=== PATIENT | female | born 1980 | race American Indian/Alaskan Native ===

== ENCOUNTER 2016-11-04 15:00 | Emergency (ER) | payer MEDICAID ==
--- NOTE | 2016-11-04 15:14 | EDM.PDOC ---
ED HPI GENERAL MEDICAL PROBLEM - General Chief Complaint: Abdominal Pain Stated Complaint: STOMACH CRAMPS / [id number] Time Seen by Provider: 11/04/16 15:14 Source of Information: Reports: Patient History Limitations: Reports: No Limitations - History of Present Illness Onset: Other (heavy vaginal bleeding for 6 days. Using 4 pads a day. Has oxycodone at home for chronic pain, not helping with assoc pelvic pain. Has light and then heavy periods alternatingly. Menses in September very light. Not on any control. 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 pt reports 11 years ago D&C for heavy bleeding? Reports h/o abnormal pap (when?) states "did not follow up"? Other Musculoskeletal History: fx of right hand about 14 yrs ago - Past Surgical History GI Surgical History: Reports: Hernia Repair/Other Social & Family History - Tobacco Use Smoking Status *Q: Current Some Day Smoker Years of Tobacco use: 10 Packs/Tins Daily: 1 Used Tobacco, but Quit: No Month Tobacco Last Used: 08/24 Second Hand Smoke Exposure: No - Caffeine Use Caffeine Use: Reports: Coffee, Soda, Tea - Alcohol Use Days Per Week of Alcohol Use: 0 - Recreational Drug Use Recreational Drug Use: No Drug Use in Last 12 Months: No ED ROS GENERAL - Review of Systems Review Of Systems: See Below Constitutional: Reports: No Symptoms HEENT: Reports: No Symptoms Respiratory: Reports: No Symptoms Cardiovascular: Reports: No Symptoms Endocrine: Reports: No Symptoms GI/Abdominal: Reports: No Symptoms : Reports: Other (heavy vaginal bleeding for 6 days with crampy pelvic pain not relieved with home oxycodone) Musculoskeletal: Reports: Other (h/o chronic bilat foot pain due to "arthritis" , right worse than left) Skin: Reports: No Symptoms Neurological: Reports: No Symptoms Psychiatric: Reports: No Symptoms Hematologic/Lymphatic: Reports: No Symptoms Immunologic: Reports: No Symptoms ED EXAM, DIZZINESS - Physical Exam Exam: See Below Exam Limited By: No Limitations General Appearance: Other (Pt alternates between talking calming and answering questions to moaning loudly and thrashing on the bed.) Ears: Normal External Exam, Normal Canal, Hearing Grossly Normal, Normal TMs Nose: Normal Inspection, Normal Mucosa Throat/Mouth: Normal Inspection, Normal Lips, Normal Teeth, Normal Gums, Normal Oropharynx, Normal Voice, No Airway Compromise Head Exam: Atraumatic, Normocephalic Respiratory/Chest: No Respiratory Distress, Lungs Clear, Normal Breath Sounds Cardiovascular: Normal Peripheral Pulses, Regular Rate, Rhythm GI/Abdominal: Normal Bowel Sounds, Soft, Non-Tender, No Organomegaly, No Distention (Female) Exam: Other (mod bright red blood from cervix, no CMT, cervix thick approx one fingertip open) Neurological: Alert Back Exam: Normal Inspection Extremities: Normal Inspection Psychiatric: Anxious Skin Exam: Warm, Dry, Intact, Normal Color, No Rash Course - Vital Signs Text/Narrative:: Pt moaning loudly she needed something strong for pain. Has oxycodone at home taking for pain, not helping. 6 day report heavy vag bleeding with crampy pelvic pain. Initial BP 141/68, HR 73, RR 24, O2 Sat 100%. Qual hcg positive and awaiting qual. U/S highly suggestive of demise at approx. 15 weeks. No cardiac activity, no uterine blood flow to support viable . Dr. Barrett exceptional needs teacher for OB and call has been placed. 16:[address] Barrett has seen and evaluated the pt. She has discussed with OB/Gyne in [facility]. Pt to be transferred to [facility] for ongoing care and evaluation. Last Recorded V/S: Last Vital Signs Temp 36.0 C 11/04/16 15:00 Pulse 90 11/04/16 17:18 Resp 24 H 11/04/16 15:00 BP 127/75 11/04/16 17:18 Pulse Ox 98 11/04/16 17:18 - Orders/Labs/Meds Orders: Active Orders 24 hr Category Date Time Status URINALYSIS W/MICROSCOPIC [UA W/MICROSCOPIC] [URIN] Stat Lab 11/04/16 15:55 Uncollected Sodium Chloride 0.9% [Normal Saline] 1,000 ml Med 11/04/16 15:15 Active IV ASDIRECTED Medication Orders Sodium Chloride (Normal Saline) 1,000 mls @ 999 mls/hr IV ASDIRECTED SAMMI Last Admin: 11/04/16 15:30 Dose: 999 mls/hr Labs: Laboratory Tests 11/04/16 11/04/16 11/04/16 Range/Units 15:20 15:20 15:20 WBC 13.4 H (5.0-10.0) 10^3/uL RBC 4.65 (4.2-5.4) 10^6/uL Hgb 13.6 (12.0-16.0) g/dL Hct 40.5 (37.0-47.0) % MCV 87.1 (80-100) fL MCH 29.2 (27.0-34.0) pg MCHC 33.6 (33.0-35.0) g/dL Plt Count 267 (150-450) 10^3/uL Neut % (Auto) 71.9 (42.2-75.2) % Lymph % (Auto) 20.2 L (20.5-50.1) % [place] % (Auto) 6.0 (2-8) % Eos % (Auto) 1.8 (1.0-3.0) % Baso % (Auto) 0.1 (0.0-1.0) % Sodium 137 (135-145) mmol/L Potassium 3.1 L (3.6-5.0) mmol/L Chloride 107 (101-111) mmol/L Carbon Dioxide 22.0 (21.0-31.0) mmol/L Anion Gap 11.1 BUN 4 L (7-18) mg/dL Creatinine 0.5 L (0.6-1.3) mg/dL Est Cr Clr Drug Dosing 147.21 mL/min Estimated GFR (MDRD) > 60 BUN/Creatinine Ratio 8.00 Glucose 102 (74-105) mg/dL Calcium 8.4 (8.4-10.2) mg/dl Total Bilirubin 0.7 (0.2-1.0) mg/dL AST 85 H (10-42) IU/L ALT 116 H (10-60) IU/L Alkaline Phosphatase 97 (42-121) IU/L Total Protein 7.0 (6.7-8.2) g/dl Albumin 3.5 (3.2-5.5) g/dl Globulin 3.5 Albumin/Globulin Ratio 1.00 HCG, Qual Positive HCG, Quant 270 H (0-25) mIU/ml Beta HCG, Quant TNP Meds: Medications Generic Name Dose Route Start Last Admin Trade Name Freq PRN Reason Stop Dose Admin Sodium Chloride 1,000 mls @ 999 mls/hr 11/04/16 15:15 11/04/16 15:30 Normal Saline IV 999 mls/hr ASDIRECTED SAMMI Administration Discontinued Medications Generic Name Dose Route Start Last Admin Trade Name Freq PRN Reason Stop Dose Admin Hydromorphone HCl 1 mg 11/04/16 15:23 11/04/16 15:30 Dilaudid IVPUSH 11/04/16 15:24 1 mg ONETIME ONE Administration Hydromorphone HCl 1 mg 11/04/16 15:52 11/04/16 15:59 Dilaudid IVPUSH 11/04/16 15:53 1 mg ONETIME ONE Administration Hydromorphone HCl 1 mg 11/04/16 17:56 11/04/16 18:00 Dilaudid IVPUSH 11/04/16 17:57 1 mg ONETIME ONE Administration Ondansetron HCl 4 mg 11/04/16 15:52 11/04/16 15:59 Zofran IV 11/04/16 15:53 4 mg ONETIME ONE Administration Departure - Departure Time of Disposition: 18:15 Disposition: DC/Tfer to Acute Hospital 02 Condition: good Clinical Impression: Inevitable - Discharge Information - My Orders Last 24 Hours: My Active Orders 11/04/16 15:15 Sodium Chloride 0.9% [Normal Saline] 1,000 ml IV ASDIRECTED 11/04/16 15:55 URINALYSIS W/MICROSCOPIC [UA W/MICROSCOPIC] [URIN] Stat - Assessment/Plan Last 24 Hours: My Active Orders 11/04/16 15:15 Sodium Chloride 0.9% [Normal Saline] 1,000 ml IV ASDIRECTED 11/04/16 15:55 URINALYSIS W/MICROSCOPIC [UA W/MICROSCOPIC] [URIN] Stat
[2016-11-04] MEDS ORDERED: Sodium Chloride 0.9% 1,000 ML IV SCH (15:15)
[2016-11-04] MEDS ORDERED: HYDROmorphone 1 MG/ML Syringe IVPUSH ONE ×3 (15:23→17:56)
[2016-11-04 15:48] LABS: CHLORIDE,CL 107 mmol/L (101-111); SODIUM,NA 137 mmol/L (135-145)
[2016-11-04] MEDS ORDERED: Ondansetron 4 MG/2 ML SDV IV ONE (15:52)
--- NOTE | 2016-11-04 16:40 | US ---
Clinical history: 36-year-old gravid" (positive test) female who "didn't know she was preg nant" but now experiencing lower abdominal labor like pains and vaginal bleeding. Interpretation: Enlarged uterus with a central gestational sac that has a uniformly thick "rind" and intraluminal fetus (biparietal diameter approximately 15 weeks). No motion or heart beat appreciated i.e. demise. Large amount of vascularity around the gestational sac consistent with probable threatening AB. CONCLUSION: demise/threatening AB. Critical exam: Primary care provider (Dr. Marmolejo) emergency department notified at 1630 hours.
[2016-11-04 18:17] VITALS: BP 128/78
--- NOTE | 2016-11-08 07:20 | CONS ---
SERVICE DATE: 11/04/2016 REASON FOR CONSULTATION: Miscarriage at 15 weeks gestation with heavy bleeding. HISTORY OF PRESENT ILLNESS: A 36-year-old, 7, para 5-0-1-5 currently at 15 weeks gestation based on ultrasound performed today with a crown-rump length of 8.68 cm, biparietal diameter of 2.75 cm presents to the Emergency Department complaining of vaginal bleeding that started Monday (5 days ago). Also reports that she did not know she was and initially thought this was just like a regular period which for her has been irregular ever since menarche at age 11 with clots. Reports today she got up and went to work and noticed some dull cramping type of pain around 8 a.m. and the pain continued throughout the day and [facility], but they informed her there were no openings and she proceeded to the Emergency Department. Upon arrival in the ER, she was reporting significant pain requiring Dilaudid for pain management, had a fairly heavy vaginal bleeding noted. On examination, ER provider reports that the vaginal vault had blood and clots present and the cervix was about 1 cm dilated, and posterior. She did not see any parts or products of conception inside the os. Laboratory show white blood cell count of 13.4, hemoglobin of 13.6, hematocrit 40.5, and platelets of 267. Chemistry remarkable for potassium of 3.1, AST of 85, and ALT of 116. Beta HCG is 270. I was called over to assess for consideration of D and C for delivery. PAST MEDICAL HISTORY: Chronic low back pain, chronic narcotic use because of her dental and low back pain, insomnia, obesity, history of urosepsis in in 2010, also ventral hernia, and former smoker. PAST SURGICAL HISTORY: section x5, the first one in 2001 and last one in 2013. She has had a left foot surgery and a ventral hernia repair with mesh. Also, reports dilatation and curettage for prior SAB. FAMILY HISTORY: Significant for her father having had a heart attack. Otherwise, noncontributory at this time. No anesthesia complications. No bleeding or clotting disorders. No history of recurrent miscarriage. SOCIAL HISTORY: The patient is a former smoker. Denies any significant use of alcohol. She is unmarried and mother of 5 children. Those children tonight will be taken care of by the grandparents and one of the children is with his biological father. 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 She had asked that we contact her sister, Jenn Gilliam who I was unable to reach by phone but her #[phone]. REVIEW OF SYSTEMS: She denies any headaches or blurry vision. No chest pain or shortness of breath. Denies any dysuria or constipation. No recent fever or chills. Last oral intake was about 1 p.m., she had a can of Mountain Dew and some chips. Her last regular meal was last night. She will be kept n.p.o. at this time. Reports that this pain is very similar to the pain she had with her prior hernia, but since has evolved into more labor like pains. MEDICATIONS: 1. Oxycodone 10/325 as needed for pain. 2. Celebrex 100 mg daily. 3. Neurontin 300 mg 4 times daily. 4. Voltaren gel as needed. 5. Ibuprofen 800 mg every 8 hours as needed. 6. Tylenol 650 mg every 6 hours as needed. ALLERGIES: No known drug allergies. PHYSICAL EXAMINATION: General: Overall, patient is alert and aware of the situation. She does have reports of moderate pain with contractions. Vital Signs: Temperature is 96.9, pulse of 56, blood pressure 128/78, respiratory rate of 18, and O2 saturations 98% on room air. HEENT: Grossly unremarkable. Heart: Regular without obvious murmur. Lungs: Clear bilaterally. Abdomen: Soft and nontender. There is a bulging in the midline consistent with her ventral hernia history. She also has a well-healed section scar. Lower Extremities: No edema, erythema, or tenderness noted. Genitourinary: Exam was not repeated. ER provider had previously performed and noted the cervix to only be 1 cm open and blood and clots present, but no parts or products of conception could be seen. LABORATORY DATA: As listed above. Per chart review, blood type is B positive. ASSESSMENT: 1. Spontaneous at 15 weeks gestation, undelivered. 2. History of section x5. PLAN: I spoke briefly with Dr. Farncis who has accepted this patient in transfer. I visited with the patient about recommendations for a vaginal delivery of this demise as compared to dilatation and evacuation. The patient will think about preferred route of delivery while en route to [place]. I have spoken with her about the potential risk for bleeding complications if I were to proceed with attempted delivery here and potential for decompensation of her condition requiring transfer to [place] if she were to have problems or were to become unstable and transfer while she is in good condition is preferred. The patient verbalizes an understanding of this and appreciates the fact that if there are complications being in [place] with specialty care and specialty equipment would be more appropriate. Of note is also the [facility] policy is that VBACs are only to be performed in the emergency situations without alternative route of delivery and do require the surgical crew and 2 physicians be in-house the entire time the patient is in labor and therefore since this would be considered a non-urgent or non-imminent delivery, it is also outside the realm of my hospital policy to proceed with a vaginal delivery here. Patient will be kept n.p.o. and transferred via ambulance as soon as they are here to pick her up. [facility] /[id number]
== END 2016-11-04 19:10 ==
LOC: DL.ED 15:00
DX: O03.9 Complete or unspecified spontaneous abortion without complication (principal); O99.332 Smoking (tobacco) complicating pregnancy, second trimester; F17.210 Nicotine dependence, cigarettes, uncomplicated; Z79.899 Other long term (current) drug therapy; Z98.890 Other specified postprocedural states
CPT/HCPCS: 36415; 76815; 80053; 84702; 84703; 85025; 96361; 96374; 96375; 96376; 99285; J1170; J2405; J7030

== ENCOUNTER 2017-02-21 19:04 | Emergency (ER) | payer MEDICAID ==
[2017-02-21 19:35] VITALS: BP 98/81
[2017-02-21 19:55] LABS: CHLORIDE,CL 99 mmol/L (101-111); SODIUM,NA 137 mmol/L (135-145)
[2017-02-21] MEDS ORDERED: Iopamidol 612 MG/ML 100 ML Bottle IVPUSH ONE (20:13)
[2017-02-21] MEDS ORDERED: Sodium Chloride 0.9% 1,000 ML IV ONE (20:13)
[2017-02-21] MEDS ORDERED: Famotidine 20 MG/2 ML SDV IVPUSH ONE (20:54)
[2017-02-21] MEDS ORDERED: Ondansetron 4 MG/2 ML SDV IV ONE (20:54)
[2017-02-21] MEDS ORDERED: HYDROmorphone 1 MG/ML Syringe IVPUSH ONE (20:55)
[2017-02-21] MEDS ORDERED: cefTRIAXone 1 GM in Sodium Chloride 0.9% 50 ML IV ONE (21:19)
--- NOTE | 2017-02-21 21:29 | EDM.PDOC ---
ED HPI GENERAL MEDICAL PROBLEM - General Chief Complaint: Chest Pain Stated Complaint: COMING BY AMBUL, CHEST PAINS Time Seen by Provider: 02/21/17 19:30 Source of Information: Reports: Patient History Limitations: Reports: No Limitations - History of Present Illness INITIAL COMMENTS - FREE TEXT/NARRATIVE: ED via [facility] with c/o lower abdominal pain, epigastric pain, vomiting . Patient describes gradual onset of pain worsening that is similar to painshe associates with remote incisional hernia. States she thinks her "mesh broke". Feels increased pain throbbing to lower abdomen when lying on left side. Occasional problems with constipation, none recent. Ate cheeseburger and fries prior to vomiting today. Has not taken anything for discomfort. no follow up done with initial surgeon. Epigastric Pain Score (Numeric/FACES): 7 - Related Data Allergies Allergy/AdvReac Type Severity Reaction Status Date / Time No Known Allergies Allergy Verified 02/21/17 19:05 Home Meds: Home Meds Ibuprofen 800 mg PO Q6HR PRN 01/04/14 [History] Acetaminophen [Tylenol] 2 tab PO Q6H 04/08/15 [History] Gabapentin [Neurontin] 1 tab PO BEDTIME 04/08/15 [History] Past Medical History - Past Health History Medical/Surgical History: Denies Medical/Surgical History HEENT History: Reports: Impaired Vision Cardiovascular History: Reports: None Respiratory History: Reports: None Gastrointestinal History: Reports: None 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 pt reports 11 years ago D&C for heavy bleeding? Reports h/o abnormal pap (when?) states "did not follow up"? Other Musculoskeletal History: fx of right hand about 14 yrs ago Neurological History: Reports: None Psychiatric History: Reports: None Endocrine/Metabolic History: Reports: None Hematologic History: Reports: None Immunologic History: Reports: None Oncologic (Cancer) History: Reports: None Dermatologic History: Reports: None - Past Surgical History GI Surgical History: Reports: Hernia Repair/Other Female Surgical History: Reports: Section Social & Family History - Tobacco Use Smoking Status *Q: Never Smoker Years of Tobacco use: 10 Packs/Tins Daily: 1 Used Tobacco, but Quit: No Month Tobacco Last Used: 08/24 Second Hand Smoke Exposure: No - Caffeine Use Caffeine Use: Reports: Coffee, Soda, Tea - Alcohol Use Days Per Week of Alcohol Use: 0 - Recreational Drug Use Recreational Drug Use: No Drug Use in Last 12 Months: No ED ROS GENERAL - Review of Systems Review Of Systems: See Below Constitutional: Denies: Fever, Chills, Decreased Appetite HEENT: Reports: Throat Pain Respiratory: Reports: No Symptoms Cardiovascular: Reports: No Symptoms Endocrine: Reports: No Symptoms GI/Abdominal: Reports: Abdominal Pain, Vomiting. Denies: Diarrhea, Distension, Hematemesis, Nausea Musculoskeletal: Reports: No Symptoms Skin: Reports: No Symptoms Neurological: Reports: No Symptoms Psychiatric: Reports: No Symptoms Hematologic/Lymphatic: Reports: No Symptoms ED EXAM, GENERAL - Physical Exam Exam: See Below Exam Limited By: No Limitations General Appearance: Alert, Mild Distress Eye Exam: Bilateral Eye: EOMI Ears: Normal External Exam Ear Exam: Bilateral Ear: Auricle Normal, Canal Normal, TM normal Nose: Normal Inspection Throat/Mouth: Normal Inspection Head: Atraumatic, Normocephalic Neck: Normal Inspection, Supple, Non-Tender Respiratory/Chest: No Respiratory Distress, Lungs Clear, Normal Breath Sounds Cardiovascular: Normal Peripheral Pulses, Regular Rate, Rhythm GI/Abdominal: Soft, Tender (mild lower with deep palpation no masses palpable. ), Abnormal Bowel Sounds (hypoactive). No: No Distention, Distended, Guarding, Rebound, Hepatomegaly, Splenomegaly Back Exam: Full Range of Motion. No: CVA Tenderness (L), CVA Tenderness (R) Extremities: Normal Inspection Neurological: Alert, Oriented, Normal Cognition Psychiatric: Normal Affect Skin Exam: Warm, Dry, Intact, Normal Color Course - Vital Signs Last Recorded V/S: Last Vital Signs Temp 97.6 F 02/21/17 19:26 Pulse 65 02/21/17 19:26 Resp 18 02/21/17 19:26 BP 98/81 02/21/17 19:26 Pulse Ox 96 02/21/17 19:26 - Orders/Labs/Meds Orders: Active Orders 24 hr Category Date Time Status EKG Documentation Completion [RC] STAT Care 02/21/17 19:21 Active Labs: Laboratory Tests 02/21/17 02/21/17 02/21/17 Range/Units 19:24 19:24 19:29 WBC 9.6 (5.0-10.0) 10^3/uL RBC 4.88 (4.2-5.4) 10^6/uL Hgb 12.1 (12.0-16.0) g/dL Hct 38.4 (37.0-47.0) % MCV 78.7 L (80-100) fL MCH 24.8 L (27.0-34.0) pg MCHC 31.5 L (33.0-35.0) g/dL Plt Count 279 (150-450) 10^3/uL Neut % (Auto) 62.2 (42.2-75.2) % Lymph % (Auto) 27.0 (20.5-50.1) % [place] % (Auto) 7.4 (2-8) % Eos % (Auto) 3.2 H (1.0-3.0) % Baso % (Auto) 0.2 (0.0-1.0) % Sodium (135-145) mmol/L Potassium (3.6-5.0) mmol/L Chloride (101-111) mmol/L Carbon Dioxide (21.0-31.0) mmol/L Anion Gap BUN (7-18) mg/dL Creatinine (0.6-1.3) mg/dL Est Cr Clr Drug Dosing mL/min Estimated GFR (MDRD) BUN/Creatinine Ratio Glucose (74-105) mg/dL Calcium (8.4-10.2) mg/dl Total Bilirubin (0.2-1.0) mg/dL AST (10-42) IU/L ALT (10-60) IU/L Alkaline Phosphatase (42-121) IU/L Troponin I (0.00-0.02) ng/ml Total Protein (6.7-8.2) g/dl Albumin (3.2-5.5) g/dl Globulin Albumin/Globulin Ratio Amylase (28-100) U/L Lipase (22-51) U/L HCG, Qual Urine Color Dark yellow (YELLOW) Urine Appearance Cloudy (CLEAR) Urine pH 5.5 (5.0-9.0) Ur Specific Schuyler >= 1.030 (1.005-1.030) Urine Protein Trace H (NEGATIVE) Urine Glucose (UA) Negative (NEGATIVE) Urine Ketones Negative (NEGATIVE) Urine Occult Blood Negative (NEGATIVE) Urine Nitrite Negative (NEGATIVE) Urine Bilirubin Small H (NEGATIVE) Urine Urobilinogen 1.0 (0.2-1.0) mg/dL Ur Leukocyte Esterase Negative (NEGATIVE) Urine RBC 0-5 /HPF Urine WBC 0-5 (0-5/HPF) /HPF Ur Epithelial Cells Many H /HPF Urine Bacteria Moderate H (0-FEW/HPF) /HPF Urine Mucus Moderate H /LPF Urine Opiates Screen Positive H (NEGATIVE) Ur Oxycodone Screen Positive H (NEGATIVE) Urine Methadone Screen Negative (NEGATIVE) Ur Barbiturates Screen Negative (NEGATIVE) U Tricyclic Antidepress Negative (NEGATIVE) Ur Phencyclidine Scrn Negative (NEGATIVE) Ur Amphetamine Screen Negative (NEGATIVE) U Methamphetamines Scrn Negative (NEGATIVE) Urine MDMA Screen Negative (NEGATIVE) U Benzodiazepines Scrn Negative (NEGATIVE) Urine Cocaine Screen Negative (NEGATIVE) U Marijuana (THC) Screen Positive H (NEGATIVE) 02/21/17 Range/Units 19:29 WBC (5.0-10.0) 10^3/uL RBC (4.2-5.4) 10^6/uL Hgb (12.0-16.0) g/dL Hct (37.0-47.0) % MCV (80-100) fL MCH (27.0-34.0) pg MCHC (33.0-35.0) g/dL Plt Count (150-450) 10^3/uL Neut % (Auto) (42.2-75.2) % Lymph % (Auto) (20.5-50.1) % [place] % (Auto) (2-8) % Eos % (Auto) (1.0-3.0) % Baso % (Auto) (0.0-1.0) % Sodium 137 (135-145) mmol/L Potassium 4.3 (3.6-5.0) mmol/L Chloride 99 L (101-111) mmol/L Carbon Dioxide 29.0 (21.0-31.0) mmol/L Anion Gap 13.3 BUN 9 (7-18) mg/dL Creatinine 0.7 (0.6-1.3) mg/dL Est Cr Clr Drug Dosing 103.99 mL/min Estimated GFR (MDRD) > 60 BUN/Creatinine Ratio 12.85 Glucose 105 (74-105) mg/dL Calcium 8.8 (8.4-10.2) mg/dl Total Bilirubin 1.1 H (0.2-1.0) mg/dL AST 66 H (10-42) IU/L ALT 122 H (10-60) IU/L Alkaline Phosphatase 98 (42-121) IU/L Troponin I < 0.02 (0.00-0.02) ng/ml Total Protein 7.3 (6.7-8.2) g/dl Albumin 3.7 (3.2-5.5) g/dl Globulin 3.6 Albumin/Globulin Ratio 1.03 Amylase 51 (28-100) U/L Lipase 19 L (22-51) U/L HCG, Qual Negative Urine Color (YELLOW) Urine Appearance (CLEAR) Urine pH (5.0-9.0) Ur Specific Schuyler (1.005-1.030) Urine Protein (NEGATIVE) Urine Glucose (UA) (NEGATIVE) Urine Ketones (NEGATIVE) Urine Occult Blood (NEGATIVE) Urine Nitrite (NEGATIVE) Urine Bilirubin (NEGATIVE) Urine Urobilinogen (0.2-1.0) mg/dL Ur Leukocyte Esterase (NEGATIVE) Urine RBC /HPF Urine WBC (0-5/HPF) /HPF Ur Epithelial Cells /HPF Urine Bacteria (0-FEW/HPF) /HPF Urine Mucus /LPF Urine Opiates Screen (NEGATIVE) Ur Oxycodone Screen (NEGATIVE) Urine Methadone Screen (NEGATIVE) Ur Barbiturates Screen (NEGATIVE) U Tricyclic Antidepress (NEGATIVE) Ur Phencyclidine Scrn (NEGATIVE) Ur Amphetamine Screen (NEGATIVE) U Methamphetamines Scrn (NEGATIVE) Urine MDMA Screen (NEGATIVE) U Benzodiazepines Scrn (NEGATIVE) Urine Cocaine Screen (NEGATIVE) U Marijuana (THC) Screen (NEGATIVE) Meds: Medications Discontinued Medications Generic Name Dose Route Start Last Admin Trade Name Freq PRN Reason Stop Dose Admin Famotidine 20 mg 02/21/17 20:54 02/21/17 21:23 Pepcid IVPUSH 02/21/17 20:55 20 mg ONETIME ONE Administration Hydromorphone HCl 1 mg 02/21/17 20:55 02/21/17 21:25 Dilaudid IVPUSH 02/21/17 20:56 1 mg ONETIME ONE Administration Sodium Chloride 1,000 mls @ 999 mls/hr 02/21/17 20:13 02/21/17 20:25 Normal Saline IV 02/21/17 21:13 999 mls/hr .BOLUS ONE Administration Ceftriaxone Sodium 1 gm/ 50 mls @ 100 mls/hr 02/21/17 21:19 02/21/17 21:33 Sodium Chloride IV 02/21/17 21:48 100 mls/hr ONETIME ONE Administration Iopamidol 100 ml 02/21/17 20:13 02/21/17 20:38 Isovue-300 (61%) IVPUSH 02/21/17 20:14 100 ml ONETIME ONE Administration Ondansetron HCl 4 mg 02/21/17 20:54 02/21/17 21:21 Zofran IV 02/21/17 20:55 4 mg ONETIME ONE Administration Departure - Departure Time of Disposition: 22:15 Disposition: Home, Self-Care 01 Condition: Fair Clinical Impression: Acute streptococcal pharyngitis Vomiting Qualifiers: Vomiting type: unspecified Vomiting Intractability: non-intractable Nausea presence: with nausea Qualified Code(s): R11.2 - Nausea with vomiting, unspecified Abdominal pain Qualifiers: Abdominal location: lower abdomen, unspecified Qualified Code(s): R10.30 - Lower abdominal pain, unspecified - Discharge Information Instructions: Strep Throat, [id number] Referrals: Marlen Mcduffie MD [Primary Care Provider] - Forms: ED Department Discharge Additional Instructions: amoxicillin 500mg one three times daily for one week increase fluid intake bland diet follow up with surgeon if continued abdominal pain - My Orders Last 24 Hours: My Active Orders 02/21/17 19:21 EKG Documentation Completion [RC] STAT - Assessment/Plan Last 24 Hours: My Active Orders 02/21/17 19:21 EKG Documentation Completion [RC] STAT
--- NOTE | 2017-03-18 11:46 | EKG ---
02/21/2017 - NATHEN GREWAL - This 12-lead EKG shows normal sinus rhythm with sinus bradycardia. Heart rate of 56, NM interval of 132. No significant ST elevation or ST depression noted on this 12-lead EKG. [facility] /[id number]
== END 2017-02-21 22:18 | disposition home or self-care (01) ==
LOC: DL.ED 19:04
DX: J02.0 Streptococcal pharyngitis (principal); R10.30 Lower abdominal pain, unspecified; R11.2 Nausea with vomiting, unspecified; Z98.890 Other specified postprocedural states
CPT/HCPCS: 36415; 74177; 80053; 80305; 81001; 82150; 83690; 84484; 84703; 85025; 87430; 93005; 96361; 96365; 96375; 99285; J0696; J1170; J2405; J7030; J7050; Q9967; S0028

== ENCOUNTER 2018-07-26 23:20 | Emergency (ER) | payer BC, MEDICAID ==
[2018-07-26] MEDS ORDERED: LORazepam 0.5 MG Tab PO ONE (23:21)
[2018-07-26 23:31] VITALS: BP 141/74
[2018-07-26] MEDS ORDERED: Sodium Chloride 0.9% 10 ML Syringe FLUSH PRN (23:38)
[2018-07-27 00:18] LABS: ANION GAP 13.4; CHLORIDE,CL 101 mmol/L (101-111); SODIUM,NA 137 mmol/L (135-145)
[2018-07-27] MEDS ORDERED: GI Cocktail Oral Solution 30 ML PO ONE (00:55)
--- NOTE | 2018-07-27 01:10 | EDM.PDOC ---
ED HPI GENERAL MEDICAL PROBLEM - General Chief Complaint: Chest Pain Stated Complaint: CHEST FEELS HEAVY [id number] Time Seen by Provider: 07/27/18 00:00 Source of Information: Reports: Patient, RN, RN Notes Reviewed History Limitations: Reports: No Limitations - History of Present Illness INITIAL COMMENTS - FREE TEXT/NARRATIVE: Pt to ER with c/o sudden onset crushing chest pain, SOB. She states it went away , then came back. She states she was unsure if it was anxiety, indigestion, or her heart. She states she has a strong family history of cardiac problems. She states the midsternal discomfort is 6/10. She last ate grilled ham and cheese, banana, Naked juice, coffee at 1900. She states there is no radiation of the pain. She states she felt sick a few weeks ago. Recently has had body aches, tired. Denies fever, chills, diarrhea, N/V. Patient also states she may have some anxiety. Onset: Today, Sudden Duration: Intermittent Location: Reports: Chest Quality: Reports: Pressure Severity: Moderate Improves with: Reports: None Worsens with: Reports: None Associated Symptoms: Reports: Chest Pain, Shortness of Breath Mid-Sternal Chest Pain Score (Numeric/FACES): 8 - Related Data Allergies Allergy/AdvReac Type Severity Reaction Status Date / Time No Known Allergies Allergy Verified 07/26/18 23:31 Home Meds: Home Meds Ibuprofen 800 mg PO Q6HR PRN 01/04/14 [History] Acetaminophen [Tylenol] 2 tab PO Q6H 04/08/15 [History] Gabapentin [Neurontin] 800 mg PO TID 07/26/18 [History] Past Medical History - Past Health History Medical/Surgical History: Denies Medical/Surgical History HEENT History: Reports: Impaired Vision Cardiovascular History: Reports: None Respiratory History: Reports: None Gastrointestinal History: Reports: Other (See Below) Other Gastrointestinal History: abdominal hernia 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 pt reports 11 years ago D&C for heavy bleeding? Reports h/o abnormal pap (when?) states "did not follow up"? Other Musculoskeletal History: fx of right hand about 14 yrs ago Neurological History: Reports: None Psychiatric History: Reports: Anxiety Endocrine/Metabolic History: Reports: None Hematologic History: Reports: None Immunologic History: Reports: None Oncologic (Cancer) History: Reports: None Dermatologic History: Reports: None - Past Surgical History Female Surgical History: Reports: Section Social & Family History - Family History Family Medical History: Noncontributory - Tobacco Use Smoking Status *Q: Unknown Ever Smoked - Caffeine Use Caffeine Use: Reports: Coffee, Energy Drinks, Soda - Recreational Drug Use Recreational Drug Use: No ED ROS GENERAL - Review of Systems Review Of Systems: ROS reveals no pertinent complaints other than HPI. ED EXAM, GENERAL - Physical Exam Exam: See Below Exam Limited By: No Limitations General Appearance: Alert, WD/WN, Mild Distress Eye Exam: Bilateral Eye: EOMI, Normal Inspection Ears: Normal External Exam, Hearing Grossly Normal Nose: Normal Inspection Throat/Mouth: Normal Inspection, Normal Voice, No Airway Compromise Head: Atraumatic, Normocephalic Neck: Normal Inspection, Supple, Non-Tender, Full Range of Motion Respiratory/Chest: No Respiratory Distress, Lungs Clear, Normal Breath Sounds, No Accessory Muscle Use, Chest Non-Tender Cardiovascular: Normal Peripheral Pulses, Regular Rate, Rhythm, No Edema, No Gallop, No JVD, No Rub, Systolic Murmur Peripheral Pulses: 2+: Radial (L), Radial (R) GI/Abdominal: Normal Bowel Sounds, Soft, Non-Tender, Hernia (umbilical) (Female) Exam: Deferred Rectal (Female) Exam: Deferred Back Exam: Normal Inspection, Full Range of Motion Extremities: Normal Inspection, Normal Range of Motion, Non-Tender, Normal Capillary Refill, No Pedal Edema Neurological: Alert, Oriented, CN II-XII Intact, Normal Cognition, Normal Gait, Normal Reflexes, No Motor/Sensory Deficits Psychiatric: Anxious Skin Exam: Warm, Dry, Intact, Normal Color, No Rash Lymphatic: No Adenopathy EKG INTERPRETATION EKG Date: 07/26/18 Time: 23:40 Rhythm: NSR Rate (Beats/Min): 76 Marianna: LAD-Left Marianna Deviation P-Wave: Present QRS: Normal ST-T: Normal QT: Normal Comparison: No Change Course - Vital Signs Last Recorded V/S: Last Vital Signs Temp 97.9 F 07/26/18 23:30 Pulse 84 07/26/18 23:30 Resp 18 07/26/18 23:30 BP 141/74 H 07/26/18 23:30 Pulse Ox 96 07/26/18 23:30 - Orders/Labs/Meds Orders: Active Orders 24 hr Category Date Time Status EKG Documentation Completion [RC] STAT Care 07/26/18 23:38 Active Peripheral IV Care [RC] . DIRECTED Care 07/26/18 23:41 Active Sodium Chloride 0.9% [Saline Flush] Med 07/26/18 23:38 Active 10 ml FLUSH ASDIRECTED PRN Peripheral IV Insertion Adult [OM.PC] Stat Oth 07/26/18 23:38 Ordered Medication Orders Sodium Chloride (Saline Flush) 10 ml FLUSH ASDIRECTED PRN PRN Reason: Keep Vein Open Last Admin: 07/27/18 00:10 Dose: 10 ml Labs: Laboratory Tests 07/26/18 07/26/18 07/26/18 Range/Units 23:54 23:54 23:54 WBC 9.3 (5.0-10.0) 10^3/uL RBC 5.01 (4.2-5.4) 10^6/uL Hgb 14.8 D (12.0-16.0) g/dL Hct 43.9 (37.0-47.0) % MCV 87.6 D (80-100) fL MCH 29.5 (27.0-34.0) pg MCHC 33.7 (33.0-35.0) g/dL Plt Count 247 (150-450) 10^3/uL Neut % (Auto) 50.6 (42.2-75.2) % Lymph % (Auto) 36.2 (20.5-50.1) % Nash % (Auto) 6.8 (2-8) % Eos % (Auto) 6.3 H (1.0-3.0) % Baso % (Auto) 0.1 (0.0-1.0) % PT 9.9 (9.0-12.0) SEC INR 1.0 (0.9-1.2) Sodium 137 (135-145) mmol/L Potassium 3.4 L (3.6-5.0) mmol/L Chloride 101 (101-111) mmol/L Carbon Dioxide 26.0 (21.0-31.0) mmol/L Anion Gap 13.4 BUN 9 (7-18) mg/dL Creatinine 0.5 L (0.6-1.3) mg/dL Est Cr Clr Drug Dosing 144.16 mL/min Estimated GFR (MDRD) > 60 BUN/Creatinine Ratio 18.00 Glucose 107 H (74-105) mg/dL Calcium 8.6 (8.4-10.2) mg/dl Total Bilirubin 1.2 H (0.2-1.0) mg/dL AST 91 H (10-42) IU/L ALT 126 H (10-60) IU/L Alkaline Phosphatase 107 (42-121) IU/L Troponin I < 0.02 (0.00-0.02) ng/ml Total Protein 7.3 (6.7-8.2) g/dl Albumin 3.7 (3.2-5.5) g/dl Globulin 3.6 Albumin/Globulin Ratio 1.03 Amylase (28-100) U/L Lipase (22-51) U/L Urine Color (YELLOW) Urine Appearance (CLEAR) Urine pH (5.0-9.0) Ur Specific Everetts (1.005-1.030) Urine Protein (NEGATIVE) Urine Glucose (UA) (NEGATIVE) Urine Ketones (NEGATIVE) Urine Occult Blood (NEGATIVE) Urine Nitrite (NEGATIVE) Urine Bilirubin (NEGATIVE) Urine Urobilinogen (0.2-1.0) mg/dL Ur Leukocyte Esterase (NEGATIVE) Urine HCG, Qual Urine Opiates Screen (NEGATIVE) Ur Oxycodone Screen (NEGATIVE) Urine Methadone Screen (NEGATIVE) Ur Barbiturates Screen (NEGATIVE) U Tricyclic Antidepress (NEGATIVE) Ur Phencyclidine Scrn (NEGATIVE) Ur Amphetamine Screen (NEGATIVE) U Methamphetamines Scrn (NEGATIVE) Urine MDMA Screen (NEGATIVE) U Benzodiazepines Scrn (NEGATIVE) Urine Cocaine Screen (NEGATIVE) U Marijuana (THC) Screen (NEGATIVE) 07/26/18 07/27/18 07/27/18 Range/Units 23:54 00:40 00:40 WBC (5.0-10.0) 10^3/uL RBC (4.2-5.4) 10^6/uL Hgb (12.0-16.0) g/dL Hct (37.0-47.0) % MCV (80-100) fL MCH (27.0-34.0) pg MCHC (33.0-35.0) g/dL Plt Count (150-450) 10^3/uL Neut % (Auto) (42.2-75.2) % Lymph % (Auto) (20.5-50.1) % Nash % (Auto) (2-8) % Eos % (Auto) (1.0-3.0) % Baso % (Auto) (0.0-1.0) % PT (9.0-12.0) SEC INR (0.9-1.2) Sodium (135-145) mmol/L Potassium (3.6-5.0) mmol/L Chloride (101-111) mmol/L Carbon Dioxide (21.0-31.0) mmol/L Anion Gap BUN (7-18) mg/dL Creatinine (0.6-1.3) mg/dL Est Cr Clr Drug Dosing mL/min Estimated GFR (MDRD) BUN/Creatinine Ratio Glucose (74-105) mg/dL Calcium (8.4-10.2) mg/dl Total Bilirubin (0.2-1.0) mg/dL AST (10-42) IU/L ALT (10-60) IU/L Alkaline Phosphatase (42-121) IU/L Troponin I (0.00-0.02) ng/ml Total Protein (6.7-8.2) g/dl Albumin (3.2-5.5) g/dl Globulin Albumin/Globulin Ratio Amylase 41 (28-100) U/L Lipase 27 (22-51) U/L Urine Color (YELLOW) Urine Appearance (CLEAR) Urine pH (5.0-9.0) Ur Specific Everetts (1.005-1.030) Urine Protein (NEGATIVE) Urine Glucose (UA) (NEGATIVE) Urine Ketones (NEGATIVE) Urine Occult Blood (NEGATIVE) Urine Nitrite (NEGATIVE) Urine Bilirubin (NEGATIVE) Urine Urobilinogen (0.2-1.0) mg/dL Ur Leukocyte Esterase (NEGATIVE) Urine HCG, Qual Negative Urine Opiates Screen Negative (NEGATIVE) Ur Oxycodone Screen Positive H (NEGATIVE) Urine Methadone Screen Negative (NEGATIVE) Ur Barbiturates Screen Negative (NEGATIVE) U Tricyclic Antidepress Negative (NEGATIVE) Ur Phencyclidine Scrn Negative (NEGATIVE) Ur Amphetamine Screen Negative (NEGATIVE) U Methamphetamines Scrn Negative (NEGATIVE) Urine MDMA Screen Negative (NEGATIVE) U Benzodiazepines Scrn Negative (NEGATIVE) Urine Cocaine Screen Negative (NEGATIVE) U Marijuana (THC) Screen Negative (NEGATIVE) 07/27/18 Range/Units 00:40 WBC (5.0-10.0) 10^3/uL RBC (4.2-5.4) 10^6/uL Hgb (12.0-16.0) g/dL Hct (37.0-47.0) % MCV (80-100) fL MCH (27.0-34.0) pg MCHC (33.0-35.0) g/dL Plt Count (150-450) 10^3/uL Neut % (Auto) (42.2-75.2) % Lymph % (Auto) (20.5-50.1) % Nash % (Auto) (2-8) % Eos % (Auto) (1.0-3.0) % Baso % (Auto) (0.0-1.0) % PT (9.0-12.0) SEC INR (0.9-1.2) Sodium (135-145) mmol/L Potassium (3.6-5.0) mmol/L Chloride (101-111) mmol/L Carbon Dioxide (21.0-31.0) mmol/L Anion Gap BUN (7-18) mg/dL Creatinine (0.6-1.3) mg/dL Est Cr Clr Drug Dosing mL/min Estimated GFR (MDRD) BUN/Creatinine Ratio Glucose (74-105) mg/dL Calcium (8.4-10.2) mg/dl Total Bilirubin (0.2-1.0) mg/dL AST (10-42) IU/L ALT (10-60) IU/L Alkaline Phosphatase (42-121) IU/L Troponin I (0.00-0.02) ng/ml Total Protein (6.7-8.2) g/dl Albumin (3.2-5.5) g/dl Globulin Albumin/Globulin Ratio Amylase (28-100) U/L Lipase (22-51) U/L Urine Color Dark yellow (YELLOW) Urine Appearance Slightly cloudy (CLEAR) Urine pH 6.0 (5.0-9.0) Ur Specific Everetts 1.025 (1.005-1.030) Urine Protein Negative (NEGATIVE) Urine Glucose (UA) Negative (NEGATIVE) Urine Ketones Negative (NEGATIVE) Urine Occult Blood Negative (NEGATIVE) Urine Nitrite Negative (NEGATIVE) Urine Bilirubin Negative (NEGATIVE) Urine Urobilinogen 4.0 H (0.2-1.0) mg/dL Ur Leukocyte Esterase Negative (NEGATIVE) Urine HCG, Qual Urine Opiates Screen (NEGATIVE) Ur Oxycodone Screen (NEGATIVE) Urine Methadone Screen (NEGATIVE) Ur Barbiturates Screen (NEGATIVE) U Tricyclic Antidepress (NEGATIVE) Ur Phencyclidine Scrn (NEGATIVE) Ur Amphetamine Screen (NEGATIVE) U Methamphetamines Scrn (NEGATIVE) Urine MDMA Screen (NEGATIVE) U Benzodiazepines Scrn (NEGATIVE) Urine Cocaine Screen (NEGATIVE) U Marijuana (THC) Screen (NEGATIVE) Meds: Medications Generic Name Dose Route Start Last Admin Trade Name Freq PRN Reason Stop Dose Admin Sodium Chloride 10 ml 07/26/18 23:38 07/27/18 00:10 Saline Flush FLUSH 10 ml ASDIRECTED PRN Administration Keep Vein Open Discontinued Medications Generic Name Dose Route Start Last Admin Trade Name Freq PRN Reason Stop Dose Admin Al Hydroxide/Mg Hydroxide 30 ml 07/27/18 00:55 07/27/18 00:59 Gi Cocktail PO 07/27/18 00:56 30 ml ONETIME ONE Administration - Radiology Interpretation Free Text/Narrative:: Chest xray: FINDINGS: Lungs: Clear lungs. Pleural space: No pneumothorax. No sizable pleural effusion. Heart/Mediastinum: No cardiomegaly. Bones/joints: Unremarkable. IMPRESSION: Clear lungs. Thank you for allowing us to participate in the care of your patient. Dictated and Authenticated by: Karson King MD 07/27/2018 1:21 AM Central Time ([place] & [place]) See rad report Departure - Departure Time of Disposition: 01:46 Disposition: Home, Self-Care 01 Condition: Fair Clinical Impression: Atypical chest pain, Anxiety Gastroesophageal reflux disease Qualifiers: Esophagitis presence: esophagitis presence not specified Qualified Code(s): K21.9 - Gastro-esophageal reflux disease without esophagitis Instructions: Indigestion, [id number], Panic Attack, [id number], Food Choices for Gastroesophageal Reflux Disease, Adult, [id number], Gastroesophageal Reflux Disease, Adult, Sqet-vi-[id number], Generalized Anxiety Disorder, Adult Forms: ED Department Discharge Additional Instructions: RX: Lorazepam 0.5 mg, take every 4 hours as needed for anxiety. Use 1 tonight for rest Follow up with your primary care facility - My Orders Last 24 Hours: My Active Orders 07/26/18 23:38 EKG Documentation Completion [RC] STAT Sodium Chloride 0.9% [Saline Flush] 10 ml FLUSH ASDIRECTED PRN Peripheral IV Insertion Adult [OM.PC] Stat 07/26/18 23:41 Peripheral IV Care [RC] . DIRECTED - Assessment/Plan Last 24 Hours: My Active Orders 07/26/18 23:38 EKG Documentation Completion [RC] STAT Sodium Chloride 0.9% [Saline Flush] 10 ml FLUSH ASDIRECTED PRN Peripheral IV Insertion Adult [OM.PC] Stat 07/26/18 23:41 Peripheral IV Care [RC] . DIRECTED
[2018-07-27] MEDS ORDERED: LORazepam 0.5 MG Tab ONE (01:49)
== END 2018-07-27 01:54 | disposition home or self-care (01) ==
LOC: DL.ED 23:20
DX: K21.9 Gastro-esophageal reflux disease without esophagitis (principal); F41.9 Anxiety disorder, unspecified
CPT/HCPCS: 36415; 71046; 80053; 80305; 81003; 81025; 82150; 83690; 84484; 85025; 85610; 93005; 99285; A9270

== ENCOUNTER 2019-02-24 12:00 | Emergency (ER) | payer BC, MEDICAID ==
[2019-02-24 12:31] VITALS: BP 135/76; PULSE 62
--- NOTE | 2019-02-24 12:33 | EDM.PDOC ---
ED HPI GENERAL MEDICAL PROBLEM - General Chief Complaint: General Stated Complaint: TOOTH PAIN Time Seen by Provider: 02/24/19 12:33 Source of Information: Reports: Patient, RN, RN Notes Reviewed History Limitations: Reports: No Limitations - History of Present Illness INITIAL COMMENTS - FREE TEXT/NARRATIVE: Pt to ER with c/o pain to the right lower jaw/tooth pain. Patient states the pain began on . States she was taking quite a bit of ibuprofen frequently. States her sister told her she could not be taking that much ibuprofen, so since yesterday she has been taking 4 ibuprofen every 4-6 hours. She was instructed that this was still too frequently. Patient denies fever or chills, admits to throbbing pain. Onset: Gradual Oral/Mouth Pain Score (Numeric/FACES): 5 - Related Data Allergies Allergy/AdvReac Type Severity Reaction Status Date / Time No Known Allergies Allergy Verified 02/24/19 12:26 Home Meds: Home Meds Ibuprofen 800 mg PO Q6HR PRN 01/04/14 [History] Acetaminophen [Tylenol] 2 tab PO Q6H 04/08/15 [History] Gabapentin [Neurontin] 800 mg PO TID 07/26/18 [History] Buprenorphine HCl/Naloxone HCl [Zubsolv 8.6-2.1 mg Tablet Sl] 1 tab BUCCAL DAILY 02/24/19 [History] Past Medical History - Past Health History Medical/Surgical History: Denies Medical/Surgical History HEENT History: Reports: Impaired Vision Cardiovascular History: Reports: None Respiratory History: Reports: None Gastrointestinal History: Reports: GERD, Hepatitis, Other (See Below) Other Gastrointestinal History: abdominal hernia 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 pt reports 11 years ago D&C for heavy bleeding? Reports h/o abnormal pap (when?) states "did not follow up"? Other Musculoskeletal History: fx of right hand about 14 yrs ago Neurological History: Reports: None Psychiatric History: Reports: Addiction, Anxiety, Depression, Other (See Below) Other Psychiatric History: S/P INTRAVENOUS DRUG USE Endocrine/Metabolic History: Reports: None, Obesity/BMI 30+ Hematologic History: Reports: None Immunologic History: Reports: None Oncologic (Cancer) History: Reports: None Dermatologic History: Reports: None - Past Surgical History GI Surgical History: Reports: Hernia Repair/Other Female Surgical History: Reports: Section Social & Family History - Family History Family Medical History: Noncontributory - Caffeine Use Caffeine Use: Reports: Coffee ED ROS GENERAL - Review of Systems Review Of Systems: ROS reveals no pertinent complaints other than HPI. ED EXAM, GENERAL - Physical Exam Exam: See Below Exam Limited By: No Limitations General Appearance: Alert, WD/WN, Moderate Distress Eye Exam: Bilateral Eye: EOMI, Normal Inspection Ears: Normal External Exam, Hearing Grossly Normal Nose: Normal Inspection Throat/Mouth: Normal Voice, No Airway Compromise, Other (swelling and pain to the right lower jaw, gums are erythematous and inflamed on the right lower side) Head: Atraumatic, Normocephalic Neck: Normal Inspection, Supple, Non-Tender, Full Range of Motion Respiratory/Chest: No Respiratory Distress, Lungs Clear, Normal Breath Sounds, No Accessory Muscle Use, Chest Non-Tender Cardiovascular: Normal Peripheral Pulses, Regular Rate, Rhythm, No Edema, No Gallop, No JVD, No Murmur, No Rub Peripheral Pulses: 2+: Radial (L), Radial (R) GI/Abdominal: Normal Bowel Sounds, Soft, Non-Tender (Female) Exam: Deferred Rectal (Female) Exam: Deferred Back Exam: Normal Inspection, Full Range of Motion Extremities: Normal Inspection, Normal Range of Motion, Non-Tender, No Pedal Edema, Normal Capillary Refill Neurological: Alert, Oriented, CN II-XII Intact, Normal Cognition, Normal Gait, Normal Reflexes, No Motor/Sensory Deficits Psychiatric: Normal Affect, Normal Mood Skin Exam: Warm, Dry, Intact, Other (Swelling and erythema to right lower jaw) Lymphatic: No Adenopathy Course - Vital Signs Last Recorded V/S: Last Vital Signs Temp 96.4 F 02/24/19 12:28 Pulse 62 02/24/19 12:28 Resp 16 02/24/19 12:28 BP 135/76 02/24/19 12:28 Pulse Ox 96 02/24/19 12:28 - Orders/Labs/Meds Orders: Active Orders 24 hr Category Date Time Status Lidocaine 2% [Xylocaine 2% Viscous] Med 02/24/19 13:16 Once 15 ml PO ONETIME ONE Meds: Medications Discontinued Medications Generic Name Dose Route Start Last Admin Trade Name Freq PRN Reason Stop Dose Admin Hydrocodone Bitart/Acetaminophen 1 tab 02/24/19 12:48 02/24/19 13:15 Frederica 325-10 Mg PO 02/24/19 12:49 1 tab ONETIME ONE Administration Departure - Departure Time of Disposition: 13:15 Disposition: Home, Self-Care 01 Condition: Fair Clinical Impression: Dental abscess - Discharge Information *PRESCRIPTION DRUG MONITORING PROGRAM REVIEWED*: No *COPY OF PRESCRIPTION DRUG MONITORING REPORT IN PATIENT ZHEN: No Instructions: Dental Abscess, [id number] Forms: ED Department Discharge Additional Instructions: RX: Amoxicillin, Frederica Drink plenty of water Hold Ibuprofen for at least 24 hours When using ibuprofen please only take 3-4 tabs (600-800mg) every 8 hours as directed for pain. Follow up with your dentist in the morning - My Orders Last 24 Hours: My Active Orders 02/24/19 13:16 Lidocaine 2% [Xylocaine 2% Viscous] 15 ml PO ONETIME ONE - Assessment/Plan Last 24 Hours: My Active Orders 02/24/19 13:16 Lidocaine 2% [Xylocaine 2% Viscous] 15 ml PO ONETIME ONE
[2019-02-24] MEDS ORDERED: Acetaminophen/HYDROcodone 325-10 MG Tab PO ONE (12:48)
[2019-02-24] MEDS ORDERED: Lidocaine 2% Viscous Solution 15 ML Cup PO ONE (13:16)
== END 2019-02-24 13:22 | disposition home or self-care (01) ==
LOC: DL.ED 12:00
DX: K04.7 Periapical abscess without sinus (principal)
CPT/HCPCS: 99282; A9270

== ENCOUNTER 2019-12-10 20:10 | Emergency (ER) | payer BC ==
[2019-12-10 20:27] VITALS: BP 143/76; PULSE 81
--- NOTE | 2019-12-10 21:11 | EDM.PDOC ---
ED HPI GENERAL MEDICAL PROBLEM - General Chief Complaint: Upper Extremity Injury/Pain Stated Complaint: LEFT HAND PAIN Time Seen by Provider: 12/10/19 20:50 Source of Information: Reports: Patient History Limitations: Reports: No Limitations - History of Present Illness INITIAL COMMENTS - FREE TEXT/NARRATIVE: This 39 yo female patient reports to the ED with her children and reports she got her left hand shut in a door yesterday. The patient reports she is currently having pain in her 5th finger. The patient reports she did ice her finger yesterday and today, but has continued to have ceballos in the finger. The patient reports she was at work today and has been having increased pain in the area. The patient reports she has been taking ibuprofen with some symptom relief. The patient has not been seen in the clinic. Onset Date: 12/09/19 Duration: Constant Location: Reports: Upper Extremity, Left Quality: Reports: Ache, Dull Severity: Mild Improves with: Reports: Rest Worsens with: Reports: Movement Context: Reports: Trauma Associated Symptoms: Reports: No Other Symptoms Treatments LEHR TENDER: Reports: Cold Therapy, NSAIDS Left Hand Pain Score (Numeric/FACES): 6 - Related Data Allergies Allergy/AdvReac Type Severity Reaction Status Date / Time No Known Allergies Allergy Verified 12/10/19 20:27 Home Meds: Home Meds Ibuprofen 800 mg PO Q6HR PRN 01/04/14 [History] Acetaminophen [Tylenol] 2 tab PO Q6H 04/08/15 [History] Gabapentin [Neurontin] 800 mg PO TID 07/26/18 [History] Buprenorphine HCl/Naloxone HCl [Zubsolv 8.6-2.1 mg Tablet Sl] 1 tab BUCCAL DAILY 02/24/19 [History] Past Medical History - Past Health History Medical/Surgical History: Denies Medical/Surgical History HEENT History: Reports: Impaired Vision Cardiovascular History: Reports: None Respiratory History: Reports: None Gastrointestinal History: Reports: GERD, Hepatitis, Other (See Below) Other Gastrointestinal History: abdominal hernia Genitourinary History: Reports: None RN HOMECARE History: Reports: Other RN HOMECARE History: section x4. pt reports 11 years ago D&C for heavy bleeding? Reports h/o abnormal pap (when?) states "did not follow up"? Other Musculoskeletal History: fx of right hand about 14 yrs ago Neurological History: Reports: None Psychiatric History: Reports: Addiction, Anxiety, Depression, Other (See Below) Other Psychiatric History: S/P INTRAVENOUS DRUG USE Endocrine/Metabolic History: Reports: None, Obesity/BMI 30+ Hematologic History: Reports: None Immunologic History: Reports: None Oncologic (Cancer) History: Reports: None Dermatologic History: Reports: None - Infectious Disease History Infectious Disease History: Reports: None - Past Surgical History GI Surgical History: Reports: Hernia Repair/Other Female Surgical History: Reports: Section Social & Family History - Family History Family Medical History: Noncontributory - Tobacco Use Smoking Status *Q: Never Smoker Second Hand Smoke Exposure: No - Caffeine Use Caffeine Use: Reports: Coffee - Recreational Drug Use Recreational Drug Use: No Review of Systems - Review of Systems Review Of Systems: Comprehensive ROS is negative, except as noted in HPI. ED EXAM, GENERAL - Physical Exam Exam: See Below Exam Limited By: No Limitations General Appearance: Alert Eye Exam: Bilateral Eye: EOMI, Normal Inspection, PERRL Ears: Normal External Exam, Normal Canal, Hearing Grossly Normal, Normal TMs Nose: Normal Inspection, Normal Mucosa, No Blood Throat/Mouth: Normal Inspection, Normal Lips, Normal Teeth, Normal Gums, Normal Oropharynx, Normal Voice, No Airway Compromise Head: Atraumatic, Normocephalic Neck: Normal Inspection, Supple, Non-Tender, Full Range of Motion Respiratory/Chest: No Respiratory Distress, Lungs Clear, Normal Breath Sounds, No Accessory Muscle Use, Chest Non-Tender Cardiovascular: Normal Peripheral Pulses, Regular Rate, Rhythm, No Edema, No Gallop, No JVD, No Murmur, No Rub GI/Abdominal: Normal Bowel Sounds, Soft, Non-Tender, No Organomegaly, No Distention, No Abnormal Bruit, No Mass (Female) Exam: Deferred Rectal (Female) Exam: Deferred Back Exam: Normal Inspection, Full Range of Motion, NT Extremities: Normal Inspection, Normal Range of Motion, Non-Tender, Normal Capillary Refill, No Pedal Edema Neurological: Alert, Oriented, CN II-XII Intact, Normal Cognition, Normal Gait, Normal Reflexes, No Motor/Sensory Deficits Psychiatric: Normal Affect, Normal Mood Skin Exam: Warm, Dry, Intact, Normal Color, No Rash Lymphatic: No Adenopathy Course - Vital Signs Last Recorded V/S: Last Vital Signs Temp 35.5 C L 06/30/20 20:18 Pulse 81 12/10/19 20:18 Resp 18 12/10/19 20:18 BP 143/76 H 12/10/19 20:18 Pulse Ox 99 12/10/19 20:18 Departure - Departure Time of Disposition: 21:19 Disposition: Home, Self-Care 01 Condition: Fair Clinical Impression: Finger fracture, left Qualifiers: Encounter type: initial encounter Finger: little finger Fracture type: closed Phalanx: distal Fracture alignment: nondisplaced Qualified Code(s): S62.667A - Nondisplaced fracture of distal phalanx of left little finger, initial encounter for closed fracture - Discharge Information *PRESCRIPTION DRUG MONITORING PROGRAM REVIEWED*: Not Applicable *COPY OF PRESCRIPTION DRUG MONITORING REPORT IN PATIENT ZHEN: Not Applicable Instructions: Finger Fracture, Adult, [id number] Forms: ED Department Discharge Care Plan Goals: The patient was advised of the examination and x-ray results during the visit. The patient was placed in a metal finger splint and her 5th finger was robby taped to the 4th finger during the visit. The patient was encouraged to continue to rest and elevate the extremity. If the patient has any additional symptoms or concerns, the patient should either return to the emergency department or visit her primary care facility. Sepsis Event Note (ED) - Evaluation Sepsis Screening Result: No Definite Risk - Focused Exam Vital Signs: Vital Signs Temp Pulse Resp BP Pulse Ox 12/10/19 20:18 35.5 C L 81 18 143/76 H 99
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
== END 2019-12-10 21:28 | disposition home or self-care (01) ==
LOC: DL.ED 20:10
DX: S62.667A Nondisplaced fracture of distal phalanx of left little finger, initial encounter for closed fracture (principal); E66.9 Obesity, unspecified; Z68.41 Body mass index [BMI] 40.0-44.9, adult; W22.8XXA Striking against or struck by other objects, initial encounter
CPT/HCPCS: 73140-F4; 99283-25

== ENCOUNTER 2020-01-27 22:01 | Emergency (ER) | payer BC, OTHER ==
[2020-01-27 22:21] VITALS: BP 120/71; PULSE 87
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
--- NOTE | 2020-01-27 23:14 | CR ---
PROCEDURE INFORMATION: Exam: XR Left Foot Complete Exam date and time: 01/27/2020 10:49 PM Age: 40 years old Clinical indication: Pain; Foot; Left; Prior surgery; Surgery date: 6+ months; Surgery type: Distal end of 1st metatarsal; Additional info: Pain left pinky toe/4th toe TECHNIQUE: Imaging protocol: XR Left foot. Views: 3 or more views. COMPARISON: CR Foot 2V Lt 09/18/2014 11:47 AM FINDINGS: Bones/joints: The bones appear intact. No acute fracture is identified. The patient has undergone a previous 1st metatarsal head osteotomy with placement of a fixation lag screw. The appearance is stable compared with the previous radiographs. The joints are normally aligned and articulated. Soft tissues: The soft tissues are within normal limits. IMPRESSION: No acute osseous pathology identified. Specifically, the 4th and 5th toes are radiographically unremarkable.
== END 2020-01-27 23:32 | disposition home or self-care (01) ==
LOC: DL.ED 22:01
DX: S93.505A Unspecified sprain of left lesser toe(s), initial encounter (principal); E66.9 Obesity, unspecified; Z68.41 Body mass index [BMI] 40.0-44.9, adult; Z79.899 Other long term (current) drug therapy; W22.8XXA Striking against or struck by other objects, initial encounter
CPT/HCPCS: 73630-LT; 99283-25

== ENCOUNTER 2020-05-11 22:02 | Emergency (ER) | payer BC, OTHER ==
[2020-05-11 22:14] VITALS: BP 132/68; PULSE 73
--- NOTE | 2020-05-11 23:41 | CR ---
PROCEDURE INFORMATION: Exam: XR Soft Tissue Neck Exam date and time: 05/11/2020 11:29 PM Age: 40 years old Clinical indication: Other: Sore throat TECHNIQUE: Imaging protocol: XR of the soft tissues of the neck. COMPARISON: No relevant prior studies available. FINDINGS: Airway: The nasopharyngeal airway is patent. The oropharyngeal airway is prominent. The tracheal air column is normal. Soft tissues: The vallecular and epiglottis and aryepiglottic folds are normal. The laryngeal ventricle is identified appears normal. There is no prevertebral soft tissue swelling. Bones/joints: No acute bony findings are identified. Dental: All maxillary teeth are absent. Extensive carious change multiple mandibular teeth. Lung apices: The visualized portions of the lung apices are normal. IMPRESSION: No specific abnormality seen.
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
== END 2020-05-11 23:58 | disposition home or self-care (01) ==
LOC: DL.ED 22:02
DX: J02.9 Acute pharyngitis, unspecified (principal); F41.9 Anxiety disorder, unspecified; E66.9 Obesity, unspecified; Z68.41 Body mass index [BMI] 40.0-44.9, adult; Z20.828 Contact with and (suspected) exposure to other viral communicable diseases
CPT/HCPCS: 70360; 87081; 87430; 87804; 99284; U0002

== ENCOUNTER 2020-06-24 21:12 | Emergency (ER) | payer BC, OTHER ==
[2020-06-24 21:55] VITALS: BP 136/71; PULSE 83
--- NOTE | 2020-06-24 22:08 | EDM.PDOC ---
ED HPI GENERAL MEDICAL PROBLEM - General Chief Complaint: Lower Extremity Injury/Pain Stated Complaint: FELL ON [employer] RAMP AND HURT BOTH HER KNEES, Time Seen by Provider: 06/24/20 21:50 Source of Information: Reports: Patient History Limitations: Reports: No Limitations - History of Present Illness INITIAL COMMENTS - FREE TEXT/NARRATIVE: This 40 yo female patient reports to the ED due to a fall on the stairs. The patient reports she fell when leaving her Grandmother's home. The patient reports she fell directly on her knees and hand. The patient reports she has continued to have pain in her knees and hands since the fall. The patient did take some ibuprofen with some symptom relief. 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 Bilateral Knee Pain Score (Numeric/FACES): 6 - Related Data Allergies Allergy/AdvReac Type Severity Reaction Status Date / Time No Known Allergies Allergy Verified 06/24/20 21:56 Home Meds: Home Meds Gabapentin [Neurontin] 800 mg PO TID 07/26/18 [History] Buprenorphine HCl/Naloxone HCl [Zubsolv 8.6-2.1 mg Tablet Sl] 1 tab BUCCAL DAILY 02/24/19 [History] Vit No.73/Iron/Fa [Trinate] 1 tab PO DAILY 06/24/20 [History] Past Medical History - Past Health History Medical/Surgical History: Denies Medical/Surgical History HEENT History: Reports: Impaired Vision Cardiovascular History: Reports: None Respiratory History: Reports: None Gastrointestinal History: Reports: GERD, Hepatitis, Other (See Below) Other Gastrointestinal History: abdominal hernia Genitourinary History: Reports: None 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 pt reports 11 years ago D&C for heavy bleeding? Reports h/o abnormal pap (when?) states "did not follow up"? Other Musculoskeletal History: fx of right hand about 14 yrs ago Neurological History: Reports: None Psychiatric History: Reports: Addiction, Anxiety, Depression, Other (See Below) Other Psychiatric History: S/P INTRAVENOUS DRUG USE Endocrine/Metabolic History: Reports: Obesity/BMI 30+ Hematologic History: Reports: None Immunologic History: Reports: None Oncologic (Cancer) History: Reports: None Dermatologic History: Reports: None - Infectious Disease History Infectious Disease History: Reports: None - Past Surgical History GI Surgical History: Reports: Hernia Repair/Other Female Surgical History: Reports: Section Social & Family History - Family History Family Medical History: No Pertinent Family History - Tobacco Use Tobacco Use Status *Q: Never Tobacco User - Caffeine Use Caffeine Use: Reports: Soda - Recreational Drug Use Recreational Drug Use: Yes Drug Use in Last 12 Months: No Review of Systems - Review of Systems Review Of Systems: Comprehensive ROS is negative, except as noted in HPI. ED EXAM, GENERAL - Physical Exam Exam: See Below Exam Limited By: No Limitations General Appearance: Alert, WD/WN, Mild Distress, Obese Eye Exam: Bilateral Eye: EOMI, Normal Inspection, PERRL Ears: Normal External Exam, Normal Canal, Hearing Grossly Normal, Normal TMs Nose: Normal Inspection, Normal Mucosa, No Blood Throat/Mouth: Normal Inspection, Normal Lips, Normal Teeth, Normal Gums, Normal Oropharynx, Normal Voice, No Airway Compromise Head: Atraumatic, Normocephalic Neck: Normal Inspection, Supple, Non-Tender, Full Range of Motion Respiratory/Chest: No Respiratory Distress, Lungs Clear, Normal Breath Sounds, No Accessory Muscle Use, Chest Non-Tender Cardiovascular: Normal Peripheral Pulses, Regular Rate, Rhythm, No Edema, No Gallop, No JVD, No Murmur, No Rub (Female) Exam: Deferred Rectal (Female) Exam: Deferred Back Exam: Normal Inspection, Full Range of Motion, NT Extremities: Arm Pain (bilateral hand pain), Leg Pain (bilateral knee pain) Neurological: Alert, Oriented, CN II-XII Intact, Normal Cognition, Normal Gait, Normal Reflexes, No Motor/Sensory Deficits Psychiatric: Normal Affect, Normal Mood Skin Exam: Warm, Dry, Intact, Normal Color, No Rash Lymphatic: No Adenopathy Course - Vital Signs Last Recorded V/S: Last Vital Signs Temp 36.9 C 06/24/20 21:52 Pulse 83 06/24/20 21:52 Resp 16 06/24/20 21:52 BP 136/71 06/24/20 21:52 Pulse Ox 100 06/24/20 21:52 - Orders/Labs/Meds Orders: Active Orders 24 hr Category Date Time Status DME for Discharge [COMM] Urgent Oth 06/24/20 23:23 Ordered Departure - Departure Time of Disposition: 23:23 Disposition: Home, Self-Care 01 Condition: Fair Clinical Impression: Fall from ground level Right knee injury Qualifiers: Encounter type: initial encounter Qualified Code(s): S89.91XA - Unspecified injury of right lower leg, initial encounter Contusion of right knee Qualifiers: Encounter type: initial encounter Qualified Code(s): S80.01XA - Contusion of right knee, initial encounter - Discharge Information *PRESCRIPTION DRUG MONITORING PROGRAM REVIEWED*: Not Applicable *COPY OF PRESCRIPTION DRUG MONITORING REPORT IN PATIENT ZHEN: Not Applicable Instructions: Knee Sprain, Adult, [id number], Crutch Use, Adult, [id number] Forms: ED Department Discharge Care Plan Goals: The patient was advised of the examination and x-ray results during the visit. The patient was placed in a right knee immobilizer and given a set of crutches while in the ED. The patient was encouraged to rest, ice and elevate her right knee over the next 48 hours. If the patient continues to have pain in her right knee, the patient should visit her primary care facility for continued evaluation and further management. The patient was encouraged to take Tylenol and ibuprofen as directed for temporary symptom relief. If the patient has any additional symptoms or concerns, the patient should either visit her primary care facility or return to the emergency department. Sepsis Event Note (ED) - Evaluation Sepsis Screening Result: No Definite Risk - Focused Exam Vital Signs: Vital Signs Temp Pulse Resp BP Pulse Ox 06/24/20 21:52 36.9 C 83 16 136/71 100 - My Orders Last 24 Hours: My Active Orders 06/24/20 23:23 DME for Discharge [COMM] Urgent - Assessment/Plan Last 24 Hours: My Active Orders 06/24/20 23:23 DME for Discharge [COMM] Urgent
--- NOTE | 2020-06-24 23:07 | CR ---
PROCEDURE INFORMATION: Exam: XR Left Knee Exam date and time: 06/24/2020 10:44 PM Age: 40 years old Clinical indication: Other: Bilateral knee pain due to fall TECHNIQUE: Imaging protocol: XR Left knee. Views: 3 views. COMPARISON: No relevant prior studies available. FINDINGS: Bones/joints: Minimal medial knee joint narrowing. Minimal marginal spurs. No fracture or dislocation. No large joint effusion. Soft tissues: No large soft tissue hematoma. IMPRESSION: No fracture. Early degenerative disease.
--- NOTE | 2020-06-24 23:09 | CR ---
PROCEDURE INFORMATION: Exam: XR Right Knee Exam date and time: 06/24/2020 10:38 PM Age: 40 years old Clinical indication: Other: Bilateral knee pain due to fall TECHNIQUE: Imaging protocol: XR Right knee. Views: 3 views. COMPARISON: No relevant prior studies available. FINDINGS: Bones/joints: Minimal marginal spurs. No fracture or dislocation. No visible joint fluid. Soft tissues: No Large soft tissue hematoma. IMPRESSION: No fracture. Minimal degenerative spurring.
--- NOTE | 2020-06-24 23:15 | CR ---
PROCEDURE INFORMATION: Exam: XR Right Hand Exam date and time: 06/24/2020 10:31 PM Age: 40 years old Clinical indication: Other: Ground level fall TECHNIQUE: Imaging protocol: XR Right hand. Views: 3 or more views. COMPARISON: No relevant prior studies available. FINDINGS: Bones/joints: No fracture or dislocation. Soft tissues: Unremarkable. IMPRESSION: No acute findings. PROCEDURE INFORMATION: Exam: XR Left Hand Exam date and time: 06/24/2020 10:31 PM Age: 40 years old Clinical indication: Other: Ground level fall TECHNIQUE: Imaging protocol: XR Left hand. Views: 3 or more views. COMPARISON: No relevant prior studies available. FINDINGS: Bones/joints: No fracture or dislocation. Small subchondral defect in the distal scaphoid. Soft tissues: Unremarkable. IMPRESSION: No acute findings.
== END 2020-06-24 23:34 | disposition home or self-care (01) ==
LOC: DL.ED 21:12
DX: S80.01XA Contusion of right knee, initial encounter (principal); M25.562 Pain in left knee; M79.641 Pain in right hand; M79.642 Pain in left hand; E66.9 Obesity, unspecified; Z68.41 Body mass index [BMI] 40.0-44.9, adult; W10.9XXA Fall (on) (from) unspecified stairs and steps, initial encounter; Y92.009 Unspecified place in unspecified non-institutional (private) residence as the place of occurrence of the external cause
CPT/HCPCS: 73130-50; 73562-LT; 73562-RT; 99283-25

== ENCOUNTER 2020-11-12 07:14 | Emergency (ER) | payer BC, OTHER ==
--- NOTE | 2020-11-12 07:18 | EDM.PDOC ---
ED HPI GENERAL MEDICAL PROBLEM - General Chief Complaint: Chest Pain Stated Complaint: [id number] TINGLING PAIN IN CHEST Time Seen by Provider: 11/12/20 07:18 Source of Information: Reports: Patient, Old Records, RN, RN Notes Reviewed History Limitations: Reports: No Limitations - History of Present Illness INITIAL COMMENTS - FREE TEXT/NARRATIVE: Pt presents to ER with c/o left chest pain/tingling that began this morning as she was getting her children ready for school. Denies shortness of breath, cough, wheezing, radiating pain, edema, or orthopnea. Pt admits to a fluttering palpitation sensation earlier, but it was brief and is no longer present. Denies Hx of CAD/MO or arrhythmia. Onset: Today Duration: Constant Location: Reports: Chest Quality: Reports: Other (Tingling) Severity: Moderate Improves with: Reports: Other (Holding pressure over the area.) Worsens with: Reports: None Associated Symptoms: Reports: No Other Symptoms - Related Data Allergies Allergy/AdvReac Type Severity Reaction Status Date / Time No Known Allergies Allergy Verified 06/24/20 21:56 Home Meds: Home Meds Gabapentin [Neurontin] 800 mg PO TID 07/26/18 [History] Buprenorphine HCl/Naloxone HCl [Zubsolv 8.6-2.1 mg Tablet Sl] 1 tab BUCCAL DAILY 02/24/19 [History] Vit No.73/Iron/Fa [Trinate] 1 tab PO DAILY 06/24/20 [History] Past Medical History - Past Health History Medical/Surgical History: Denies Medical/Surgical History HEENT History: Reports: Impaired Vision Cardiovascular History: Reports: None Respiratory History: Reports: None Gastrointestinal History: Reports: GERD, Hepatitis, Other (See Below) Other Gastrointestinal History: abdominal hernia Genitourinary History: Reports: None 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 pt reports 11 years ago D&C for heavy bleeding? Reports h/o abnormal pap (when?) states "did not follow up"? Other Musculoskeletal History: fx of right hand about 14 yrs ago Neurological History: Reports: None Psychiatric History: Reports: Addiction, Anxiety, Depression, Other (See Below) Other Psychiatric History: S/P INTRAVENOUS DRUG USE Endocrine/Metabolic History: Reports: Obesity/BMI 30+ Hematologic History: Reports: None Immunologic History: Reports: None Oncologic (Cancer) History: Reports: None Dermatologic History: Reports: None - Infectious Disease History Infectious Disease History: Reports: None - Past Surgical History GI Surgical History: Reports: Hernia Repair/Other Female Surgical History: Reports: Section Social & Family History - Family History Family Medical History: No Pertinent Family History - Caffeine Use Caffeine Use: Reports: Soda - Living Situation & Occupation Living situation: Reports: with Family ED ROS GENERAL - Review of Systems Review Of Systems: Comprehensive ROS is negative, except as noted in HPI. ED EXAM, GENERAL - Physical Exam Exam: See Below Exam Limited By: No Limitations General Appearance: Alert, WD/WN, No Apparent Distress, Obese Eye Exam: Bilateral Eye: Normal Inspection Ears: Normal External Exam, Hearing Grossly Normal Nose: Normal Inspection Throat/Mouth: Normal Lips, Normal Voice, No Airway Compromise Head: Atraumatic, Normocephalic Neck: Normal Inspection, Supple, Non-Tender, Full Range of Motion Respiratory/Chest: No Respiratory Distress, Lungs Clear, Normal Breath Sounds, No Accessory Muscle Use, Chest Non-Tender Cardiovascular: Normal Peripheral Pulses, Regular Rate, Rhythm, No Edema, No Gallop, No JVD, No Murmur, No Rub GI/Abdominal: Normal Bowel Sounds, Soft, Non-Tender, No Organomegaly, No Distention, No Abnormal Bruit, No Mass Back Exam: Normal Inspection Extremities: Normal Inspection, Normal Range of Motion, Non-Tender, Normal Capi llary Refill, No Pedal Edema Neurological: Alert, Oriented, CN II-XII Intact, Normal Cognition, Normal Gait, No Motor/Sensory Deficits Psychiatric: Normal Affect, Anxious Skin Exam: Warm, Dry, Intact, Normal Color, No Rash #1 Interpretation EKG Date: 11/12/20 Time: 07:30 Rhythm: Other (SR) Rate (Beats/Min): 68 [place]: LAD-Left [place] Deviation P-Wave: Present QRS: Normal ST-T: Other (Nonspecific T wave abnormalities) QT: Normal Comparison: NA - No Prior EKG Course - Vital Signs Last Recorded V/S: Last Vital Signs Temp 97.8 F 11/12/20 07:25 Pulse 80 11/12/20 07:25 Resp 18 11/12/20 07:25 BP 123/50 L 11/12/20 07:25 Pulse Ox 94 L 11/12/20 07:25 - Orders/Labs/Meds Orders: Active Orders 24 hr Category Date Time Status EKG 12 Lead [EKG Documentation Completion] [RC] STAT Care 11/12/20 07:17 Active Labs: Laboratory Tests 11/12/20 11/12/20 11/12/20 Range/Units 08:04 08:04 08:04 WBC 9.3 (5.0-10.0) 10^3/uL RBC 4.72 (4.2-5.4) 10^6/uL Hgb 14.7 (12.0-16.0) g/dL Hct 43.2 (37.0-47.0) % MCV 91.5 D (80-100) fL MCH 31.1 (27.0-34.0) pg MCHC 34.0 (33.0-35.0) g/dL Plt Count 187 (150-450) 10^3/uL Neut % (Auto) 54.1 (42.2-75.2) % Lymph % (Auto) 35.0 (20.5-50.1) % [place] % (Auto) 6.2 (2-8) % Eos % (Auto) 4.5 H (1.0-3.0) % Baso % (Auto) 0.2 (0.0-1.0) % D-Dimer, Quantitative < 100 (0-400) ng/mL Sodium 139 (136-145) mmol/L Potassium 3.6 (3.5-5.1) mmol/L Chloride 104 (98-107) mmol/L Carbon Dioxide 27 (21-32) mmol/L Anion Gap 11.6 (7-13) mEq/L BUN 7 (7-18) mg/dL Creatinine 0.80 (0.55-1.02) mg/dL Est Cr Clr Drug Dosing 83.27 mL/min Estimated GFR (MDRD) > 60 BUN/Creatinine Ratio 8.8 (No establ ref range) Glucose 145 H (70-99) mg/dL Calcium 8.0 L (8.5-10.1) mg/dL Total Bilirubin 1.1 H (0.2-1.0) mg/dL AST 57 H (15-37) U/L ALT 76 H (14-59) U/L Alkaline Phosphatase 119 H (46-116) U/L Troponin I High Sens 24 (<=51) pg/mL Total Protein 7.3 (6.4-8.2) g/dL Albumin 3.1 L (3.4-5.0) g/dL Globulin 4.2 Albumin/Globulin Ratio 0.74 - Radiology Interpretation Free Text/Narrative:: [facility] [place] [facility] Final Radiology Report Call: [phone] assistance Online chat: [email or web address] Name: NATHEN GREWAL Age: 40Years F Date: 11/12/2020 SSN: -- : 1980 Study: CR CHEST 1V FRONTAL Requesting Physician: JACKY GENAO Images: 1 Addl Studies: Provided Clinical History: chest pain Contrast: Contrast Medium: Contrast Amount: Contrast Method: CONFIDENTIALITY STATEMENT This report is intended only for use by the referring physician, and only in accordance with law. If you received this in error, call [phone]. Page 1 of 1 PROCEDURE INFORMATION: Exam: XR Chest Exam date and time: 11/12/2020 7:54 AM Age: 40 years old Clinical indication: Other: Chest pain TECHNIQUE: Imaging protocol: XR of the chest. Views: 1 view. COMPARISON: CR Chest 2V 07/27/2018 12:08 AM FINDINGS: Airway: The airways are patent. Lungs: No acute interstitial or airspace disease. Pleural spaces: There are no pleural effusions present. There is no evidence of pneumothorax. Heart/Mediastinum: Heart is of normal size and morphology. Bones/joints: No acute skeletal abnormality or aggressive osseous lesion. IMPRESSION: Negative for acute thoracic pathology. Thank you for allowing us to participate in the care of your patient. Dictated and Authenticated by: Tristan Beth MD 11/12/2020 8:17 AM Central Time ([place] & [place]) Departure - Departure Time of Disposition: 09:03 Disposition: Home, Self-Care 01 Condition: Good Clinical Impression: Atypical chest pain Instructions: Nonspecific Chest Pain, Adult, [id number], Esophageal Spasm Forms: ED Department Discharge Additional Instructions: Rx: Omeprazole 40mg Follow up in clinic next week for recheck. Sepsis Event Note (ED) - Focused Exam Vital Signs: Vital Signs Temp Pulse Resp BP Pulse Ox 11/12/20 07:25 97.8 F 80 18 123/50 L 94 L - My Orders Last 24 Hours: My Active Orders 11/12/20 07:17 EKG 12 Lead [EKG Documentation Completion] [RC] STAT - Assessment/Plan Last 24 Hours: My Active Orders 11/12/20 07:17 EKG 12 Lead [EKG Documentation Completion] [RC] STAT
[2020-11-12 07:28] VITALS: BP 123/50; PULSE 80
--- NOTE | 2020-11-12 08:18 | CR ---
PROCEDURE INFORMATION: Exam: XR Chest Exam date and time: 11/12/2020 7:54 AM Age: 40 years old Clinical indication: Other: Chest pain TECHNIQUE: Imaging protocol: XR of the chest. Views: 1 view. COMPARISON: CR Chest 2V 07/27/2018 12:08 AM FINDINGS: Airway: The airways are patent. Lungs: No acute interstitial or airspace disease. Pleural spaces: There are no pleural effusions present. There is no evidence of pneumothorax. Heart/Mediastinum: Heart is of normal size and morphology. Bones/joints: No acute skeletal abnormality or aggressive osseous lesion. IMPRESSION: Negative for acute thoracic pathology.
[2020-11-12 08:37] LABS: ANION GAP 11.6 mEq/L (7-13); CHLORIDE,CL 104 mmol/L (98-107); SODIUM,NA 139 mmol/L (136-145)
== END 2020-11-12 09:20 | disposition home or self-care (01) ==
LOC: DL.ED 07:14
DX: R07.89 Other chest pain (principal); E66.9 Obesity, unspecified; Z68.41 Body mass index [BMI] 40.0-44.9, adult
CPT/HCPCS: 36415; 71045; 80053; 84484; 85025; 85379; 93005; 93010; 99284; 99285-25

== ENCOUNTER 2021-02-24 19:49 | Emergency (ER) | payer BC, MEDICAID, OTHER | END 2021-02-24 23:03 | disposition left against medical advice (07) | LOC: DL.ED 19:49 | DX: R11.10 Vomiting, unspecified (principal); Z53.21 Procedure and treatment not carried out due to patient leaving prior to being seen by health care provider ==

== ENCOUNTER 2021-06-25 20:51 | Emergency (ER) | payer MEDICAID ==
[2021-06-25] MEDS ORDERED: Ondansetron 4 MG Tab.DIS PO ONE ×2 (20:52→21:56)
[2021-06-25 21:13] VITALS: BP 113/54; PULSE 75
[2021-06-25] MEDS ORDERED: Ketorolac 30 MG/ML SDV IM ONE (21:56)
[2021-06-25 22:00] LABS: CORONAVIRUS COVID-19 NAA POSITIVE (NEGATIVE)
[2021-06-25] MEDS ORDERED: Ondansetron 4 MG Tab.DIS ONE (22:26)
== END 2021-06-25 23:06 | disposition home or self-care (01) ==
LOC: DL.ED 20:51
DX: U07.1 COVID-19 (principal)
CPT/HCPCS: 0240U; 96372; 99284; A9270; J1885

== ENCOUNTER 2021-07-01 19:21 | Emergency (ER) | payer MEDICAID ==
[2021-07-01 20:24] VITALS: BP 118/70; PULSE 52
[2021-07-01] MEDS ORDERED: Ibuprofen 600 MG Tab ONE (20:25)
[2021-07-01] MEDS ORDERED: Ibuprofen 600 MG Tab PO ONE (20:31)
[2021-07-01] MEDS ORDERED: Amoxicillin 500 MG Cap PO ONE (20:51)
[2021-07-01] MEDS ORDERED: Famotidine 20 MG Tab PO ONE (20:52)
== END 2021-07-01 21:15 | disposition home or self-care (01) ==
LOC: DL.ED 19:21
DX: U07.1 COVID-19 (principal); J02.9 Acute pharyngitis, unspecified; E66.9 Obesity, unspecified; Z68.42 Body mass index [BMI] 45.0-49.9, adult
CPT/HCPCS: 87081; 87430; 99283; A9270

== ENCOUNTER 2021-11-07 23:09 | Emergency (ER) | payer BC ==
[2021-11-08 03:00] VITALS: BP 102/67; PULSE 62
[2021-11-08 03:14] LABS: CHLORIDE,CL 108 mmol/L (98-107); SODIUM,NA 142 mmol/L (136-145)
[2021-11-08] MEDS ORDERED: Iopamidol 612 MG/ML 100 ML Bottle IVPUSH ONE (04:44)
== END 2021-11-08 07:30 | disposition home or self-care (01) ==
LOC: DL.ED 23:09
DX: R10.31 Right lower quadrant pain (principal); E66.9 Obesity, unspecified; Z68.41 Body mass index [BMI] 40.0-44.9, adult
CPT/HCPCS: 36415; 74177; 80053; 81001; 83690; 83735; 85025; 99284; Q9967

== ENCOUNTER 2021-11-26 17:09 | Emergency (ER) | payer BC ==
[2021-11-26] MEDS ORDERED: traMADol 50 MG Tab PO ONE (17:37)
[2021-11-26] MEDS ORDERED: HYDROmorphone 0.5 MG/0.5 ML Syringe IVPUSH ONE (18:18)
[2021-11-26] MEDS ORDERED: HYDROmorphone 1 MG/ML Syringe IVPUSH ONE (18:51)
[2021-11-26] MEDS ORDERED: Iopamidol 612 MG/ML 100 ML Bottle IVPUSH ONE (18:52)
[2021-11-26 21:31] VITALS: BP 106/47; PULSE 106
== END 2021-11-26 21:13 | disposition home or self-care (01) ==
LOC: DL.ED 17:09
DX: N83.202 Unspecified ovarian cyst, left side (principal); E66.01 Morbid (severe) obesity due to excess calories; Z68.41 Body mass index [BMI] 40.0-44.9, adult
CPT/HCPCS: 74177; 96374; 99284; A9270; J1170; Q9967

== ENCOUNTER 2021-12-13 09:42 | Emergency (ER) | payer BC ==
[2021-12-13] MEDS ORDERED: Clindamycin HCl 150 MG Cap PO ONE ×2 (09:43→10:19)
[2021-12-13 09:59] VITALS: BP 139/83; PULSE 69
[2021-12-13] MEDS ORDERED: Lidocaine 2% Viscous Solution 15 ML UD PO ONE (10:19)
[2021-12-13] MEDS ORDERED: Clindamycin HCl 150 MG Cap ONE (10:26)
== END 2021-12-13 10:38 | disposition home or self-care (01) ==
LOC: DL.ED 09:42
DX: K02.9 Dental caries, unspecified (principal); K21.9 Gastro-esophageal reflux disease without esophagitis; E66.9 Obesity, unspecified; Z68.34 Body mass index [BMI] 34.0-34.9, adult; Z79.899 Other long term (current) drug therapy
CPT/HCPCS: 99282; A9270

== ENCOUNTER 2022-01-10 17:01 | Emergency (ER) | payer BC ==
[2022-01-10] MEDS ORDERED: Ondansetron 4 MG Tab.DIS PO ONE (17:17)
[2022-01-10] MEDS ORDERED: Bacitracin Oint 1 GM U/D Packet TOP ONE (17:17)
[2022-01-10 17:20] VITALS: BP 142/89; PULSE 86
== END 2022-01-10 17:35 | disposition home or self-care (01) ==
LOC: DL.ED 17:01
DX: T81.30XA Disruption of wound, unspecified, initial encounter (principal); R11.0 Nausea; E66.9 Obesity, unspecified; Z68.41 Body mass index [BMI] 40.0-44.9, adult; Z79.899 Other long term (current) drug therapy; Z86.16 Personal history of COVID-19
CPT/HCPCS: 99282; A9270; 99283

== ENCOUNTER 2022-04-22 22:23 | Emergency (ER) | payer BC, MEDICAID ==
[2022-04-22 23:04] VITALS: PULSE 87
[2022-04-22 23:27] LABS: CORONAVIRUS COVID-19 NAA NEGATIVE (NEGATIVE)
[2022-04-23 00:36] VITALS: BP 124/66
== END 2022-04-23 01:27 | disposition home or self-care (01) ==
LOC: DL.ED 22:23
DX: J06.9 Acute upper respiratory infection, unspecified (principal); M19.90 Unspecified osteoarthritis, unspecified site; E66.9 Obesity, unspecified; Z20.822 Contact with and (suspected) exposure to COVID-19
CPT/HCPCS: 0240U; 87081; 87430; 99283

== ENCOUNTER 2022-05-15 21:12 | Emergency (ER) | payer MEDICAID ==
[2022-05-15 21:32] VITALS: BP 117/63; PULSE 62
[2022-05-15 22:40] LABS: ANION GAP 9.7 mEq/L (7-13)
== END 2022-05-15 23:13 | disposition home or self-care (01) ==
LOC: DL.ED 21:12
DX: R10.30 Lower abdominal pain, unspecified (principal); E66.9 Obesity, unspecified; Z68.41 Body mass index [BMI] 40.0-44.9, adult; Z79.899 Other long term (current) drug therapy
CPT/HCPCS: 36415; 74018; 80053; 81003; 85025; 99284

== ENCOUNTER 2022-11-21 22:40 | Emergency (ER) | payer BC, OTHER ==
[2022-11-22] MEDS ORDERED: Clindamycin HCl 150 MG Cap PO ONE (02:01)
[2022-11-22] MEDS ORDERED: Ketorolac 30 MG/ML SDV IM ONE (02:02)
[2022-11-22] MEDS ORDERED: Take Home: Lidocaine 2% Viscous Solution 15 ML UD, 2 Cup Pack PO ONE (02:02)
[2022-11-22 02:31] VITALS: BP 103/62; PULSE 68
== END 2022-11-22 02:30 | disposition home or self-care (01) ==
LOC: DL.ED 22:40
DX: K04.7 Periapical abscess without sinus (principal); K02.9 Dental caries, unspecified; K00.7 Teething syndrome; E66.9 Obesity, unspecified; Z68.41 Body mass index [BMI] 40.0-44.9, adult; Z86.16 Personal history of COVID-19; Z98.890 Other specified postprocedural states
CPT/HCPCS: 96372; 99282; A9270; J1885

== ENCOUNTER 2022-11-22 20:14 | Emergency (ER) | payer BC, OTHER ==
[2022-11-22 20:22] VITALS: BP 149/82; PULSE 57
[2022-11-22] MEDS ORDERED: Take Home: traMADol 50 MG, 4 Tab Pack PO ONE (20:49)
== END 2022-11-22 21:05 | disposition home or self-care (01) ==
LOC: DL.ED 20:14
DX: K02.9 Dental caries, unspecified (principal); K00.7 Teething syndrome; E66.9 Obesity, unspecified; Z68.41 Body mass index [BMI] 40.0-44.9, adult; Z86.16 Personal history of COVID-19
CPT/HCPCS: 99282; A9270

== ENCOUNTER 2022-12-17 05:51 | Emergency (ER) | payer MEDICAID ==
[2022-12-17 06:51] VITALS: BP 141/72; PULSE 84
[2022-12-17] MEDS ORDERED: GI Cocktail Oral Solution 30 ML PO ONE (06:51)
== END 2022-12-17 07:20 | disposition home or self-care (01) ==
LOC: DL.ED 05:51
DX: K21.9 Gastro-esophageal reflux disease without esophagitis (principal); Z86.16 Personal history of COVID-19
CPT/HCPCS: 99282; 99283; A9270

== ENCOUNTER 2023-06-06 15:50 | Emergency (ER) | payer MEDICAID ==
[2023-06-06 16:39] LABS: BASOPHILS PERCENT AUTO 0.1 % (0.0-1.0); EOSINOPHILS PERCENT AUTO 3.2 % (1.0-3.0); HEMATOCRIT 41.2 % (37.0-47.0); HEMOGLOBIN 13.6 g/dL (12.0-16.0); LYMPHOCYTES PERCENT AUTO 32.8 % (20.5-50.1); MEAN CORPUSCULAR HEMOGLOBIN 27.1 pg (27.0-34.0); MEAN CORPUSCULAR VOLUME 82.2 fL (80-100); MONOCYTES PERCENT AUTO 7.9 % (2-8); PLATELET COUNT,PLT 216 10^3/uL (150-450); RED BLOOD CELL COUNT 5.01 10^6/uL (4.2-5.4); WHITE BLOOD CELL COUNT,WBC 11.2 10^3/uL (5.0-10.0)
[2023-06-06 16:51] LABS: ALANINE AMINOTRANSFERASE,ALT 30 U/L (14-59); ALBUMIN 3.3 g/dL (3.4-5.0); ALKALINE PHOSPHATASE 130 U/L (46-116); ANION GAP 11.7 mEq/L (7-13); ASPARTATE AMNIOTRANSFERASE,AST 33 U/L (15-37); BILIRUBIN TOTAL 1.1 mg/dL (0.2-1.0); BLOOD UREA NITROGEN,BUN 7 mg/dL (7-18); CALCIUM 8.5 mg/dL (8.5-10.1); CARBON DIOXIDE,CO2 28 mmol/L (21-32); CHLORIDE,CL 103 mmol/L (98-107); GLUCOSE RANDOM 138 mg/dL (70-99); POTASSIUM,K 3.7 mmol/L (3.5-5.1); PROTEIN TOTAL,TP 7.9 g/dL (6.4-8.2); SODIUM,NA 139 mmol/L (136-145)
[2023-06-06 16:52] LABS: A/G RATIO 0.72; ESTIMATED GFR 109 mL/min (>=60)
[2023-06-06 17:45] VITALS: BP 126/79; PULSE 68
== END 2023-06-06 17:45 | disposition home or self-care (01) ==
LOC: DL.ED 15:50
DX: R07.9 Chest pain, unspecified (principal); E11.9 Type 2 diabetes mellitus without complications; Z86.16 Personal history of COVID-19; Z79.899 Other long term (current) drug therapy
CPT/HCPCS: 36415; 71045; 80053; 84484; 85025; 93005; 99285

== ENCOUNTER 2023-09-17 17:26 | Emergency (ER) | payer BC ==
[2023-09-17 18:04] VITALS: BP 129/76
[2023-09-17 18:19] LABS: BASOPHILS PERCENT AUTO 0.2 % (0.0-1.0); EOSINOPHILS PERCENT AUTO 3.2 % (1.0-3.0); HEMATOCRIT 42.1 % (37.0-47.0); HEMOGLOBIN 13.9 g/dL (12.0-16.0); LYMPHOCYTES PERCENT AUTO 27.5 % (20.5-50.1); MEAN CORPUSCULAR HEMOGLOBIN 27.5 pg (27.0-34.0); MEAN CORPUSCULAR VOLUME 83.2 fL (80-100); MONOCYTES PERCENT AUTO 5.8 % (2-8); NEUTROPHILS PERCENT AUTO 63.3 % (42.2-75.2); PLATELET COUNT,PLT 246 10^3/uL (150-450); RED BLOOD CELL COUNT 5.06 10^6/uL (4.2-5.4); WHITE BLOOD CELL COUNT,WBC 10.1 10^3/uL (5.0-10.0)
[2023-09-17 18:24] LABS: A/G RATIO 0.7; ALBUMIN 3.4 g/dL (3.4-5.0); ANION GAP 10.7 mEq/L (7-13); BILIRUBIN TOTAL 0.7 mg/dL (0.2-1.0); BUN/CREATININE RATIO 10.7 (No establ ref range); CALCIUM 8.5 mg/dL (8.5-10.1); CREATININE 0.75 mg/dL (0.55-1.02); EST CRCL DRUG DOSING (CG) 96.56 mL/min; POTASSIUM,K 3.7 mmol/L (3.5-5.1)
[2023-09-17] MEDS: Ondansetron 4 MG/2 ML SDV IVPUSH ONE (18:41)
[2023-09-17 19:51] LABS: APPEARANCE,URINE CLEAR (CLEAR); BILIRUBIN,URINE NEGATIVE (NEGATIVE); COLOR,URINE YELLOW (YELLOW); GLUCOSE,URINE NEGATIVE (NEGATIVE); KETONES,URINE NEGATIVE (NEGATIVE); LEUKOCYTE ESTERASE,URINE NEGATIVE (NEGATIVE); NITRITE,URINE NEGATIVE (NEGATIVE); OCCULT BLOOD,URINE NEGATIVE (NEGATIVE); PROTEIN,URINE NEGATIVE (NEGATIVE); UROBILINOGEN,URINE 0.2 mg/dL (0.2-1.0)
[2023-09-17] MEDS: Magnesium Citrate Solution 296 ML Bottle PO ONE (20:32)
[2023-09-17] MEDS: Bisacodyl 5 MG Tab PO ONE (20:38)
== END 2023-09-17 20:40 | disposition home or self-care (01) ==
LOC: DL.ED 17:26
DX: K59.00 Constipation, unspecified (principal); E11.9 Type 2 diabetes mellitus without complications; Z86.16 Personal history of COVID-19; Z79.899 Other long term (current) drug therapy
CPT/HCPCS: 36415; 74022; 80053; 81003; 83690; 85025; 96374; 99284; A9270; J2405

== ENCOUNTER 2023-10-21 08:47 | Emergency (ER) | payer BC ==
[2023-10-21] MEDS: Ondansetron 4 MG/2 ML SDV IV ONE ×2 (09:09→09:46)
[2023-10-21] MEDS: Famotidine 20 MG/2 ML SDV IVPUSH ONE (09:12)
[2023-10-21 09:14] VITALS: BP 138/92; PULSE 100
[2023-10-21 09:15] LABS: BASOPHILS PERCENT AUTO 0.1 % (0.0-1.0); EOSINOPHILS PERCENT AUTO 3.3 % (1.0-3.0); HEMATOCRIT 43.7 % (37.0-47.0); HEMOGLOBIN 14.5 g/dL (12.0-16.0); LYMPHOCYTES PERCENT AUTO 25.8 % (20.5-50.1); MEAN CORPUSCULAR HEMOGLOBIN 27.4 pg (27.0-34.0); MEAN CORPUSCULAR HGB CONC 33.2 g/dL (33.0-35.0); MEAN CORPUSCULAR VOLUME 82.5 fL (80-100); MONOCYTES PERCENT AUTO 5.2 % (2-8); NEUTROPHILS PERCENT AUTO 65.6 % (42.2-75.2); PLATELET COUNT,PLT 216 10^3/uL (150-450); WHITE BLOOD CELL COUNT,WBC 10.2 10^3/uL (5.0-10.0)
[2023-10-21] MEDS: Sodium Chloride 0.9% 10 ML Syringe FLUSH PRN (09:17)
[2023-10-21] MEDS: Sodium Chloride 0.9% 1,000 ML IV ONE (09:17)
[2023-10-21 09:39] LABS: A/G RATIO 0.7; ALANINE AMINOTRANSFERASE,ALT 18 U/L (14-59); ALBUMIN 3.4 g/dL (3.4-5.0); ALKALINE PHOSPHATASE 111 U/L (46-116); AMYLASE 54 U/L (25-115); ANION GAP 16.9 mEq/L (7-13); ASPARTATE AMNIOTRANSFERASE,AST 16 U/L (15-37); BILIRUBIN TOTAL 0.6 mg/dL (0.2-1.0); BLOOD UREA NITROGEN,BUN 6 mg/dL (7-18); BUN/CREATININE RATIO 7.8 (No establ ref range); CALCIUM 8.1 mg/dL (8.5-10.1); CARBON DIOXIDE,CO2 25 mmol/L (21-32); CHLORIDE,CL 104 mmol/L (98-107); CREATININE 0.77 mg/dL (0.55-1.02); EST CRCL DRUG DOSING (CG) 87.28 mL/min; ESTIMATED GFR 97 mL/min (>=60); GLUCOSE RANDOM 204 mg/dL (70-99); LIPASE 39 U/L (16-77); POTASSIUM,K 3.9 mmol/L (3.5-5.1); PROTEIN TOTAL,TP 8.1 g/dL (6.4-8.2); SODIUM,NA 142 mmol/L (136-145)
[2023-10-21 09:40] LABS: LACTIC ACID 1.6 mmol/L (0.4-2.0)
[2023-10-21] MEDS: Iopamidol 612 MG/ML 100 ML Bottle IVPUSH ONE (10:11)
[2023-10-21 11:11] LABS: APPEARANCE,URINE CLEAR (CLEAR); BILIRUBIN,URINE NEGATIVE (NEGATIVE); COLOR,URINE YELLOW (YELLOW); GLUCOSE,URINE NEGATIVE (NEGATIVE); KETONES,URINE NEGATIVE (NEGATIVE); LEUKOCYTE ESTERASE,URINE NEGATIVE (NEGATIVE); NITRITE,URINE NEGATIVE (NEGATIVE); OCCULT BLOOD,URINE NEGATIVE (NEGATIVE); PH,URINE 7.5 (5.0-9.0); PROTEIN,URINE NEGATIVE (NEGATIVE)
[2023-10-21 11:14] LABS: AMPHETAMINES,URINE NEGATIVE (NEGATIVE); BARBITURATES,URINE NEGATIVE (NEGATIVE); BENZODIAZEPINE,URINE NEGATIVE (NEGATIVE); MDMA (ECSTASY), URINE NEGATIVE (NEGATIVE); METHADONE,URINE NEGATIVE (NEGATIVE); METHAMPHETAMINES,URINE NEGATIVE (NEGATIVE); OPIATES,URINE NEGATIVE (NEGATIVE); OXYCODONE,URINE NEGATIVE (NEGATIVE); PHENCYCLIDINE,URINE NEGATIVE (NEGATIVE); TCA,URINE NEGATIVE (NEGATIVE)
[2023-10-21] MEDS: Bisacodyl 10 MG Supp RECTAL ONE (11:27)
[2023-10-21] MEDS: Lactulose Soln 10 GM/15 ML 30 ML UD Cup PO ONE ×2 (11:27→14:16)
== END 2023-10-21 15:05 | disposition home or self-care (01) ==
LOC: DL.ED 08:47
DX: K29.00 Acute gastritis without bleeding (principal); K59.00 Constipation, unspecified; E11.9 Type 2 diabetes mellitus without complications; Z79.899 Other long term (current) drug therapy; Z86.16 Personal history of COVID-19
CPT/HCPCS: 36415; 74177; 80053; 80305; 81003; 81025; 82150; 83605; 83690; 84145; 85025; 96361; 96374; 96375; 96376; 99284; A9270; J2405; J3490; J7030; Q9967

== ENCOUNTER 2024-06-08 21:26 | Emergency (ER) | payer BC ==
[2024-06-08 23:12] VITALS: BP 124/80; PULSE 64
== END 2024-06-08 22:13 | disposition home or self-care (01) ==
LOC: DL.ED 21:26
DX: S23.29XA Dislocation of other parts of thorax, initial encounter (principal); E11.9 Type 2 diabetes mellitus without complications; Z86.16 Personal history of COVID-19; Z79.899 Other long term (current) drug therapy; X50.1XXA Overexertion from prolonged static or awkward postures, initial encounter
CPT/HCPCS: 99282; 99284

== ENCOUNTER 2024-06-11 00:44 | Emergency (ER) | payer BC ==
[2024-06-11] MEDS: Sodium Chloride 0.9% 1,000 ML IV ONE (01:11)
[2024-06-11] MEDS: Acetaminophen 325 MG Tab PO ONE (01:11)
[2024-06-11 01:20] LABS: BASOPHILS PERCENT AUTO 0.1 % (0.0-1.0); EOSINOPHILS PERCENT AUTO 4.7 % (1.0-3.0); HEMATOCRIT 42.8 % (37.0-47.0); LYMPHOCYTES PERCENT AUTO 36.7 % (20.5-50.1); MEAN CORPUSCULAR HEMOGLOBIN 26.3 pg (27.0-34.0); MEAN CORPUSCULAR HGB CONC 32.7 g/dL (33.0-35.0); MEAN CORPUSCULAR VOLUME 80.3 fL (80-100); MONOCYTES PERCENT AUTO 8.4 % (2-8); NEUTROPHILS PERCENT AUTO 50.1 % (42.2-75.2); PLATELET COUNT,PLT 206 10^3/uL (150-450); RED BLOOD CELL COUNT 5.33 10^6/uL (4.2-5.4)
[2024-06-11 01:43] LABS: A/G RATIO 0.8; ALANINE AMINOTRANSFERASE,ALT 20 U/L (14-59); ALBUMIN 3.5 g/dL (3.4-5.0); ALKALINE PHOSPHATASE 93 U/L (46-116); ANION GAP 12.2 mEq/L (7-13); ASPARTATE AMNIOTRANSFERASE,AST 20 U/L (15-37); BILIRUBIN TOTAL 0.8 mg/dL (0.2-1.0); BLOOD UREA NITROGEN,BUN 9 mg/dL (7-18); BUN/CREATININE RATIO 12.2 (No establ ref range); CALCIUM 8.4 mg/dL (8.5-10.1); CARBON DIOXIDE,CO2 30 mmol/L (21-32); CHLORIDE,CL 103 mmol/L (98-107); CREATINE KINASE,CK 122 U/L (16-191); CREATININE 0.74 mg/dL (0.55-1.02); ESTIMATED GFR 102 mL/min (>=60); GLUCOSE RANDOM 83 mg/dL (70-99); LIPASE 39 U/L (16-77); MAGNESIUM 1.9 mg/dL (1.8-2.4); POTASSIUM,K 3.2 mmol/L (3.5-5.1); SODIUM,NA 142 mmol/L (136-145)
[2024-06-11] MEDS: Potassium Chloride 10 MEQ Tab.ER PO ONE (02:24)
[2024-06-11] MEDS: Potassium Chloride 10 MEQ in Premix Bag 1 BAG IV ONE (02:24)
[2024-06-11 04:45] VITALS: BP 112/64; PULSE 75
[2024-06-11] MEDS: Sodium Chloride 0.9% 500 ML IV ONE (04:59)
== END 2024-06-11 06:30 | disposition home or self-care (01) ==
LOC: DL.ED 00:44
DX: R07.9 Chest pain, unspecified (principal); R51.9 Headache, unspecified; E86.0 Dehydration; E87.6 Hypokalemia; E11.9 Type 2 diabetes mellitus without complications; Z86.16 Personal history of COVID-19; Z79.899 Other long term (current) drug therapy
CPT/HCPCS: 36415; 70450; 71045; 80053; 82550; 82947; 83690; 83735; 84484; 85025; 93005; 96361; 96365; 99285; A9270; J3480; J7030